=== PATIENT | female | born 1950 | race Caucasian/White ===

== ENCOUNTER → 2016-06-09 | Outpatient (CLI) | payer OTHER ==
[~2016-06-09] MED LIST: /DULO30CA PO; ADVAIR; ADVAIR INH; ALBUTEROL INH; ALDA25TA2 PO; ANTI25TA PO; ASPI81TA63 PO; ASTE0.15; Allergy Shots INJ; BILBERRY PO; BILLBERRY PO; Black Cohosh PO; CLAR5CHW; CLARINEX PO; COLA100C2 PO; ESTRACE OR; FURO40TA2 PO; GABA100C PO; IMIT50TA OR; LEVOXYL PO; LISI5TAB PO; MAGN500T2 PO; MAGOX; MOME50SP; MULTCAP9 PO; MULTIVIT PO; POTASSIUM GLUCONATE PO; PRAV1TAB39 PO; PREV15CA PO; PROAAER INH; SING10TA31 PO; SYMB80AE IN; ULTR300T PO; VICO5TAB OR; VITA500T PO; VITAMIN B 12 PO; VITAMIN B 6; VITAMIN B 6 PO; VITAMIN B-12; VITAMIN D 3; VITAMIN D 3 PO; ZADI0.026 OU; [UNRECOGNIZED DRUG - OTHER] OR; [UNRECOGNIZED DRUG - REMARK] INH; black cohash PO
--- NOTE | 2016-06-13 23:20 | ECWPNPC ---
PATIENT NAME: GLORIA CARROLL : 1950 GENDER: FEMALE VISIT DATE: 06/09/2016 DISCHARGE DATE: 06/09/16 1635 VISIT LOCKED DATE TIME: PHYSICIAN: RIMA ANDRADE RESOURCE: RIMA ANDRADE REASON FOR APPOINTMENT 1. W/C BACK HISTORY OF PRESENT ILLNESS HISTORY OF PRESENT ILLNESS: PAIN THE PATIENT DESCRIBES THE PAIN... 65 YEAR OLD FEMALE PATIENT WITH HISTORY OF CHRONIC BACK PAIN. PATIENT DESCRIBES THE PAIN ACHING, TENDER, AND SORE WITH A PAIN SCORE OF 4-5/10 ON TODAY'S VISIT. PATIENT WAS INJURED IN A WORK RELATED INJURY ON 03-14-1986 WORKING FOR [employer]. MS. CARROLL WAS HELPING A 89 YEAR OLD PATIENT FROM THE COMMODE WHEN THE PATIENT'S KNEES BUCKLED AND MS. CARROLL CAUGHT THE PATIENT INJURING HER BACK. MS. CARROLL REPORTS THAT SHE HAS NO HAD ANY BACK SURGERIES. PATIENT REPORTS THAT WITH TRAMADOL AND CYMBALTA THEY HELP TO KEEP HER PAIN TOLERABLE AND THAT WITHOUT THEM HER PAIN LEVELS WOULD BE HIGHER AND THAT SHE WOULD BE GETTING FAR LESS SLEEP, BUT PATIENT STATES THAT SOMETIMES ON SOME NIGHTS THE PAIN DOES STILL WAKE HER UP. PATIENT REPORTS THAT DAILY ACTIVITIES LIKE WASHING THE DISHES, VACUUMING AROUND THE HOUSE DOES INCREASE HER PAIN LEVELS AND THAT SHE HAS TO STOP EVERY SO OFTEN UNTIL THE PAIN RETURNS TO TOLERABLE LEVELS. PATIENT DENIES UNEXPLAINABLE WEIGHT LOSS, FEVER, CHILLS, NEW CHANGES ON HER URINARY OR BOWEL CONTROL. FALL RISK SCREENING: SCREENING :NO FALLS IN THE PAST YEAR CURRENT MEDICATIONS TAKING ZYRTEC ALLERGY 10 MG TABLET 1 TABLET NEEDED ORALLY ONCE A DAY TAKING DESLORATADINE 5 MG TABLET 1 TABLET ORALLY ONCE A DAY TAKING FUROSEMIDE 40 MG TABLET 1 TABLET ORALLY TWICE A DAY TAKING ESTRADIOL 1 MG TABLET 1 TABLET ORALLY DAILY TAKING LISINOPRIL 5 MG TABLET 1 TABLET ORALLY ONCE A DAY TAKING LANSOPRAZOLE 30 MG CAPSULE DELAYED RELEASE 1 CAPSULE ORALLY ONCE A DAY TAKING SPIRONOLACTONE 25 MG TABLET 1 TABLET ORALLY DAILY TAKING SINGULAIR 10 MG TABLET 1 TABLET IN THE EVENING ORALLY ONCE A DAY TAKING STOOL SOFTENER 100 MG CAPSULE 1 CAPSULE NEEDED ORALLY TWICE A DAY TAKING ECOTRIN LOW STRENGTH 81 MG TABLET DELAYED RELEASE 1 TABLET ORALLY ONCE A DAY TAKING PRAVASTATIN SODIUM 40 MG TABLET 1 TABLET ORALLY ONCE A DAY TAKING SYMBICORT 160-4.5 MCG/ACT AEROSOL 2 PUFFS INHALATION TWICE A DAY TAKING ASTEPRO 0.15 % SOLUTION 2 SPRAYS IN EACH NOSTRIL NASALLY PRN TAKING LEVOTHYROXINE SODIUM 25 MCG TABLET 1 TABLET ORALLY ONCE A DAY TAKING MELOXICAM 10 MG CAPSULE 1 CAPSULE ORALLY ONCE A DAY TAKING CYMBALTA 60 MG CAPSULE DELAYED RELEASE PARTICLES 1 CAPSULE ORALLY ONCE A DAY BILL W/C TAKING TRAMADOL HCL ER 300 MG TABLET EXTENDED RELEASE 24 HOUR 1 TABLET ORALLY ONCE A DAY MDD=1 NOT-TAKING LIPO-FLAVONOID PLUS TABLET 1 ORALLY BID NOT-TAKING POTASSIUM GLUCONATE 595 MG TABLET ORALLY NOT-TAKING MAGOX 400 400 (241.3 MG) MG TABLET ORALLY NOT-TAKING PROAIR HFA 108 (90 BASE) MCG/ACT AEROSOL SOLUTION 2 PUFFS INHALATION BID NOT-TAKING NASONEX 50 MCG/ACT SUSPENSION 2 SPRAYS IN EACH NOSTRIL NASALLY BID MEDICATION LIST REVIEWED AND RECONCILED WITH THE PATIENT PAST MEDICAL HISTORY HIGH CHOLESTORAL HYPOTHYROIDISM HYPERTENSION FLUID RETENTION BACK PAIN ALLERGIES LATEX (FOR ALLERGY USE ONLY): RASH: ALLERGY CECLOR: HIVES: ALLERGY AMOXICILLIN: HIVES: ALLERGY SULFA (FOR ALLERGY USE ONLY): HIVES: ALLERGY SURGICAL HISTORY TOTAL HYSTERECTOMY 2013 CHOLECYSTECTOMY 2011 RIGHT KNEE ARTHROSCOPY 1994 TORN LATERAL MENISCUS 2008 RIGHT BREAST LUMPECTOMY BENIGN 1992 FAMILY HISTORY NO FAMILY HISTORY DOCUMENTED. SOCIAL HISTORY GENERAL: TOBACCO USE ARE YOU A:NONSMOKER LEARNING BARRIERS / SPECIAL NEEDS ORIENTED TO PLAN OF CARE: PATIENT, PAIN MANAGEMENT PATIENT, ORIENTED TO PLAN OF CARE: PATIENT, PAIN MANAGEMENT PATIENT. NEW PATIENT PAIN DIARY TODAY'S VISITNOTES FROM 0-10, WHAT LEVEL IS YOUR PAIN TODAY?0 PAIN CLINIC PFS, CLERGY, PUBLIC HEALTH REFERRALS PFS REFERRAL NEEDED?NO CLERGY REFERRAL NEEDED?NO PUBLIC HEALTH REFERRAL NEEDED?NO WAS THE PROVIDER NOTIFIED OF ANY PERTINENT INFO?NO PFS REFERRAL NEEDED?NO CLERGY REFERRAL NEEDED?NO PUBLIC HEALTH REFERRAL NEEDED?NO WAS THE PROVIDER NOTIFIED OF ANY PERTINENT INFO?NO HOSPITALIZATION/MAJOR DIAGNOSTIC PROCEDURE GI BLEED UNKNOWN CAUSE 2013 REVIEW OF SYSTEMS CONSTITUTIONAL: ANY CHANGE IN YOUR MEDICAL CONDITION? NO . CHILLS NO . FEVER NO . INFECTION: DO YOU HAVE NEW INFECTIONS? NO . DO YOU HAVE HISTORY OF MRSA? NO . MUSCULOSKELETAL: ANY NEW PATTERNS OF PAIN OR NUMBNESS? NO . GASTROENTEROLOGY: ANY NEW CHANGE IN BOWEL CONTROL? NO . GENITOURINARY: ANY NEW CHANGE IN BLADDER CONTROL? NO . IS THERE A CHANCE YOU COULD BE ? NO . HEMATOLOGY/LYMPH: DO YOU TAKE ANY BLOOD THINNERS? (FOR EXAMPLE- COUMADIN, PLAVIX, AGGRENOX, PLATEL, PRADAXA, OR XARELTO) NO . WHEN WAS YOUR LAST DOSE? DATE: TIME: . NEUROLOGY: HAVE YOU FALLEN IN THE PAST 6 MONTHS? NO . ANY NEW EXTREMITY NUMBNESS OR WEAKNESS? NO . CARDIOLOGY: DO YOU HAVE A PACEMAKER OR DEFIBRILLATOR? NO . RESPIRATORY: HAVE YOU BEEN SICK IN THE PAST WEEK? YES PT HAD SINUS INFECTION WITH CONGESTION/DISCOMFORT, NOW RESOLVED . FEVER NO . FLU LIKE SYMPTOMS? NO . COUGH NO . INTEGUMENTARY: DO YOU HAVE ANY RASHES OR OPEN SORES? NO . ALLERGIC/IMMUNO: ARE YOU ALLERGIC TO SHELLFISH OR IV DYE? NO . ANY NEW ALLERGIES? NO . PSYCHIATRIC: DO YOU HAVE THOUGHTS OF HURTING YOURSELF OR SOMEONE ELSE? NO . ARE YOU ABUSED, NEGLECTED, OR IN AN UNSAFE ENVIRONMENT? NO . ENDOCRINOLOGY: ARE YOU DIABETIC? NO . OTHER: DO YOU NEED ANY PRESCRIPTIONS? YES CYMBALTA . IF YES, PLEASE LIST: ____ . ANY NEW PROBLEMS WITH YOUR MEDICATIONS? NO . WHEN DID YOU LAST EAT? ____ . WHEN DID YOU LAST DRINK? ____ . WHAT DID YOU LAST DRINK? ____ . NAME OF PERSON DRIVING YOU HOME? ____ . DO YOU HAVE ANY OTHER QUESTIONS OR CONCERNS NO . REVIEWED BY: PROVIDER: RIMA ANDRADE MD . VITAL SIGNS WT 284.6 LBS, HT 63 IN, BMI 50.41 INDEX, BP 128/75 MM HG, HR 91 /MIN, RR 16 /MIN, TEMP 97.4 F, OXYGEN SAT % 91%, NA INITIALS SC 15:05, REVIEWED BY: JON. EXAMINATION : PATIENT IS ALERT O X 3 AND COOPERATIVE. THERE IS TENDERNESS IN THE LUMBAR PARASPINAL MUSCLE GROUP, THE PATIENT FLINCHED WHEN I EXAMINED THIS AREA. PATIENT IS ABLE TO FLEX HER BACK AT 45 DEGREES AND EXTEND AT 5 DEGREES. THE PATIENT'S LEFT LEG IS WEAKER AT FLEXION AND EXTENSION COMPARED TO THE RIGHT LEG. MRI OF THE LUMBAR SPINE DONE ON 10/23/2008 SHOWS MULTIPLE DISC BULGES AT MULTIPLE LEVELS. ASSESSMENTS CHRONIC LOW BACK PAIN WITHOUT SCIATICA, UNSPECIFIED BACK PAIN LATERALITY - M54.5 (PRIMARY) SPONDYLOSIS WITHOUT MYELOPATHY OR RADICULOPATHY, LUMBAR REGION - M47.816 SPONDYLOSIS WITHOUT MYELOPATHY OR RADICULOPATHY, LUMBOSACRAL REGION - M47.817 TREATMENT CHRONIC LOW BACK PAIN WITHOUT SCIATICA, UNSPECIFIED BACK PAIN LATERALITY REFILL CYMBALTA CAPSULE DELAYED RELEASE PARTICLES, 60 MG, 1 CAPSULE, ORALLY, ONCE A DAY BILL W/C, 30 DAY(S), 30, REFILLS 2 REFILL TRAMADOL HCL ER TABLET EXTENDED RELEASE 24 HOUR, 300 MG, 1 TABLET, ORALLY, ONCE A DAY MDD=1, 30 DAY(S), 30, REFILLS 0 NOTES: WE DISCUSSED SEVERAL ISSUES WITH MS. VELASQUEZ PAIN MANAGEMENT CASE. AT THIS TIME THE PATIENT WILL CONTINUE ON THE SAME MEDICATION REGIMEN BEFORE AND WILL RECEIVE A REFILL OF TRAMADOL AND CYMBALTA. PATIENT BROUGHT HER MEDICATION BOTTLES TO THE VISIT TODAY ADVISED TO DO ON EVERY FOLLOW UP VISIT. I WILL ORDER UTOX TO BE COLLECTION AND COMPLETED TODAY. PATIENT IS A GOOD CANDIDATE FOR A LUMBAR FACET BLOCK, PATIENT EXPRESSED THAT SHE HAS SOME CONCERNS AND WOULD LIKE TO THINK IT OVER. INSTRUCTIONS WERE GIVEN, QUESTIONS WERE ANSWERED, PATIENT REPORTS UNDERSTANDING AND AGREES WITH THE PLAN. I, LLOYD VERAS, DOCUMENTED THE ABOVE INFORMATION ACTING A SCRIBE FOR DR. ANDRADE. I HAVE REVIEWED THE ABOVE DOCUMENT, WRITTEN BY LLOYD VERAS SCRIBBairon AND I VERIFY THAT IT IS ACCURATE. PROCEDURES PN WORKMANS' COMP OPINION IN YOUR OPINION, WAS THE INCIDENT THAT THE PATIENT DESCRIBED THE COMPETENT MEDICAL CAUSE OF THIS INJURY/ILLNESS? YES ARE THE PATIENT'S COMPLAINTS CONSISTENT WITH HIS/HER HISTORY OF THE INJURY/ILLNESS? YES IS THE PATIENT'S HISTORY OF THE INJURY/ILLNESS CONSISTENT WITH YOUR OBJECTIVE FINDING? YES WHAT IS THE PERCENTAGE OF TEMPORARY IMPAIRMENT? MODERATE TO MARKED = 66.7% IS THE PATIENT WORKING? NO DOCTOR ON SITE: RIMA GUERRERO MD PROCEDURE CODES FA211 ESTABILISHED PATIENT [facility] FACILITY CHARGE G8730 PAIN ASSESS POS TOOL F/U PLAN DOC G8427 DOC MEDS VERIFIED W/PT OR RE DISPOSITION & COMMUNICATION FOLLOW UP 4 WEEKS ELECTRONICALLY SIGNED BY RIMA ANDRADE MD ON 06/13/2016 AT 04:00 PM EST DISCLAIMER : THIS IS A VISIT SUMMARY EXTRACTED FROM THE COM DEV CHART. IT IS NOT A COPY OF THE COM DEV PROGRESS NOTE. DEEJAY
== END ==
LOC: M PAIN 15:20
PROVIDERS: ATTEND Anesthesiology
DX: Z09 Encounter for follow-up examination after completed treatment for conditions other than malignant neoplasm (principal); G89.29 Other chronic pain; M54.5 Low back pain; M47.816 Spondylosis without myelopathy or radiculopathy, lumbar region; M47.817 Spondylosis without myelopathy or radiculopathy, lumbosacral region; E78.00 Pure hypercholesterolemia, unspecified; E03.9 Hypothyroidism, unspecified; I10 Essential (primary) hypertension; Z91.040 Latex allergy status; Z88.8 Allergy status to other drugs, medicaments and biological substances; Z88.2 Allergy status to sulfonamides; Z88.1 Allergy status to other antibiotic agents; Z79.891 Long term (current) use of opiate analgesic; Z79.899 Other long term (current) drug therapy

== ENCOUNTER → 2016-07-14 | Outpatient (CLI) | payer OTHER ==
--- NOTE | 2016-07-26 23:51 | ECWPNPC ---
PATIENT NAME: GLORIA CARROLL : 1950 GENDER: FEMALE VISIT DATE: 07/14/2016 DISCHARGE DATE: 07/14/16 1433 VISIT LOCKED DATE TIME: PHYSICIAN: RIMA ANDRADE RESOURCE: RIMA ADNRADE REASON FOR APPOINTMENT 1. BACK PAIN W/C HISTORY OF PRESENT ILLNESS HISTORY OF PRESENT ILLNESS: PAIN THE PATIENT DESCRIBES THE PAIN... 65 YEAR OLD FEMALE PATIENT WITH HISTORY OF CHRONIC LOW BACK PAIN. PATIENT DESCRIBES THE PAIN ACHING AND TENDER WITH A PAIN SCORE OF 4-5/10. PATIENT WAS HURT IN A WORK RELATED INJURY ON 03/14/86 WHEN WORKING FOR [employer] WHILE HELPING A 89 YEAR OLD OFF THE COMMODE AND HER KNEES COLLAPSE AND MRS. CARROLL GRABBED THE PATIENT AND WAS PULLED DOWN WITH HER. MRS. CARROLL DENIES ANY BACK SURGERY. PATIENT IS USING CYMBALTA AND TRAMADOL AND STATES THAT THE MEDICATION KEEPS HER FUNCTIONAL AND MOBILE. PATIENT STATES THAT ANY TYPE OF ACTIVITY INCREASES THE PAIN IN THE LOWER BACK AND AT THIS TIME THE PATIENT STATES THAT MEDICATION AIDS IN PAIN RELIEF. MRS. CARROLL STATES THAT PHYSICAL THERAPY DID NOT AID IN PAIN RELIEF. PATIENT DENIES UNEXPLAINABLE WEIGHT LOSS, FEVER, CHILLS, NEW CHANGES ON HER URINARY OR BOWEL CONTROL. FALL RISK SCREENING: SCREENING :NO FALLS IN THE PAST YEAR CURRENT MEDICATIONS TAKING CYMBALTA 60 MG CAPSULE DELAYED RELEASE PARTICLES 1 CAPSULE ORALLY ONCE A DAY BILL W/C TAKING TRAMADOL HCL ER 300 MG TABLET EXTENDED RELEASE 24 HOUR 1 TABLET ORALLY ONCE A DAY MDD=1 TAKING DESLORATADINE 5 MG TABLET 1 TABLET ORALLY ONCE A DAY TAKING FUROSEMIDE 40 MG TABLET 1 TABLET ORALLY TWICE A DAY TAKING ESTRADIOL 1 MG TABLET 1 TABLET ORALLY DAILY TAKING LISINOPRIL 5 MG TABLET 1 TABLET ORALLY ONCE A DAY TAKING LANSOPRAZOLE 30 MG CAPSULE DELAYED RELEASE 1 CAPSULE ORALLY ONCE A DAY TAKING SPIRONOLACTONE 25 MG TABLET 1 TABLET ORALLY DAILY TAKING SINGULAIR 10 MG TABLET 1 TABLET IN THE EVENING ORALLY ONCE A DAY TAKING STOOL SOFTENER 100 MG CAPSULE 1 CAPSULE NEEDED ORALLY TWICE A DAY TAKING ECOTRIN LOW STRENGTH 81 MG TABLET DELAYED RELEASE 1 TABLET ORALLY ONCE A DAY TAKING SYMBICORT 160-4.5 MCG/ACT AEROSOL 2 PUFFS INHALATION TWICE A DAY TAKING ASTEPRO 0.15 % SOLUTION 2 SPRAYS IN EACH NOSTRIL NASALLY PRN TAKING LEVOTHYROXINE SODIUM 25 MCG TABLET 1 TABLET ORALLY ONCE A DAY TAKING MELOXICAM 10 MG CAPSULE 1 CAPSULE ORALLY ONCE A DAY NOT-TAKING ZYRTEC ALLERGY 10 MG TABLET 1 TABLET NEEDED ORALLY ONCE A DAY NOT-TAKING PRAVASTATIN SODIUM 40 MG TABLET 1 TABLET ORALLY ONCE A DAY NOT-TAKING LIPO-FLAVONOID PLUS TABLET 1 ORALLY BID NOT-TAKING POTASSIUM GLUCONATE 595 MG TABLET ORALLY NOT-TAKING MAGOX 400 400 (241.3 MG) MG TABLET ORALLY NOT-TAKING PROAIR HFA 108 (90 BASE) MCG/ACT AEROSOL SOLUTION 2 PUFFS INHALATION BID NOT-TAKING NASONEX 50 MCG/ACT SUSPENSION 2 SPRAYS IN EACH NOSTRIL NASALLY BID MEDICATION LIST REVIEWED AND RECONCILED WITH THE PATIENT PAST MEDICAL HISTORY HIGH CHOLESTORAL HYPOTHYROIDISM HYPERTENSION FLUID RETENTION BACK PAIN ALLERGIES LATEX (FOR ALLERGY USE ONLY): RASH: ALLERGY CECLOR: HIVES: ALLERGY AMOXICILLIN: HIVES: ALLERGY SULFA (FOR ALLERGY USE ONLY): HIVES: ALLERGY SURGICAL HISTORY TOTAL HYSTERECTOMY 2012 CHOLECYSTECTOMY 2010 RIGHT KNEE ARTHROSCOPY 1993 TORN LATERAL MENISCUS 2007 RIGHT BREAST LUMPECTOMY BENIGN 1991 FAMILY HISTORY FATHER: 83 YRS, DIAGNOSED WITH HEART DISEASE MOTHER: 70 YRS 1 SISTER(S) . 1 SON(S) , 1 DAUGHTER(S) - HEALTHY. MOM- TO GI BLEED AND SEPSIS, SISTER OF ENCEPHALOPATHY. SOCIAL HISTORY GENERAL: PAIN CLINIC PFS, CLERGY, PUBLIC HEALTH REFERRALS PFS REFERRAL NEEDED?NO CLERGY REFERRAL NEEDED?NO PUBLIC HEALTH REFERRAL NEEDED?NO WAS THE PROVIDER NOTIFIED OF ANY PERTINENT INFO?YES PATIENT: ____. HOSPITALIZATION/MAJOR DIAGNOSTIC PROCEDURE GI BLEED UNKNOWN CAUSE 2013 REVIEW OF SYSTEMS CONSTITUTIONAL: ANY CHANGE IN YOUR MEDICAL CONDITION? NO . CHILLS NO . FEVER NO . INFECTION: DO YOU HAVE NEW INFECTIONS? NO . DO YOU HAVE HISTORY OF MRSA? NO . MUSCULOSKELETAL: ANY NEW PATTERNS OF PAIN OR NUMBNESS? NO . GASTROENTEROLOGY: ANY NEW CHANGE IN BOWEL CONTROL? NO . GENITOURINARY: ANY NEW CHANGE IN BLADDER CONTROL? NO . IS THERE A CHANCE YOU COULD BE ? NO . HEMATOLOGY/LYMPH: DO YOU TAKE ANY BLOOD THINNERS? (FOR EXAMPLE- COUMADIN, PLAVIX, AGGRENOX, PLATEL, PRADAXA, OR XARELTO) NO . WHEN WAS YOUR LAST DOSE? DATE: TIME: . NEUROLOGY: HAVE YOU FALLEN IN THE PAST 6 MONTHS? NO . ANY NEW EXTREMITY NUMBNESS OR WEAKNESS? NO . CARDIOLOGY: DO YOU HAVE A PACEMAKER OR DEFIBRILLATOR? NO . RESPIRATORY: HAVE YOU BEEN SICK IN THE PAST WEEK? NO . FEVER NO . FLU LIKE SYMPTOMS? NO . COUGH NO . INTEGUMENTARY: DO YOU HAVE ANY RASHES OR OPEN SORES? NO . ALLERGIC/IMMUNO: ARE YOU ALLERGIC TO SHELLFISH OR IV DYE? NO . ANY NEW ALLERGIES? NO . PSYCHIATRIC: DO YOU HAVE THOUGHTS OF HURTING YOURSELF OR SOMEONE ELSE? NO . ARE YOU ABUSED, NEGLECTED, OR IN AN UNSAFE ENVIRONMENT? NO . ENDOCRINOLOGY: ARE YOU DIABETIC? NO . OTHER: DO YOU NEED ANY PRESCRIPTIONS? YES, TRAMADOL 300MG . IF YES, PLEASE LIST: ____ . ANY NEW PROBLEMS WITH YOUR MEDICATIONS? NO . WHEN DID YOU LAST EAT? 07/13 7:30PM . WHEN DID YOU LAST DRINK? 07/13 7:30PM . WHAT DID YOU LAST DRINK? WATER . NAME OF PERSON DRIVING YOU HOME? SELF . DO YOU HAVE ANY OTHER QUESTIONS OR CONCERNS NO . REVIEWED BY: PROVIDER: RIMA ANDRADE MD . VITAL SIGNS WT 283.0 LBS, HT 63 IN, BMI 50.13 INDEX, BP 134/87 MM HG, HR 100 /MIN, RR 18 /MIN, TEMP 98.5 F, OXYGEN SAT % 93%, SAFE IN ENV? (Y/N) Y, NA INITIALS TL 1309, REVIEWED BY: JACOB. EXAMINATION : PATIENT IS ALERT O X 3 AND COOPERATIVE. THERE IS TENDERNESS IN THE LUMBAR PARASPINAL MUSCLE GROUP ON THE LEFT AND RIGHT SIDE BUT MAINLY THE LEFT. PATIENT IS ABLE TO FLEX HER BACK AT 45 DEGREES AND EXTEND AT 5 DEGREES. THE PATIENT'S LEFT LEG IS WEAKER AT FLEXION AND EXTENSION COMPARED TO THE RIGHT LEG. MRI OF THE LUMBAR SPINE DONE ON 10/23/2008 SHOWS MULTIPLE DISC BULGES AT MULTIPLE LEVELS. ASSESSMENTS SPONDYLOSIS WITHOUT MYELOPATHY OR RADICULOPATHY, LUMBAR REGION - M47.816 (PRIMARY) SPONDYLOSIS WITHOUT MYELOPATHY OR RADICULOPATHY, LUMBOSACRAL REGION - M47.817 INTERVERTEBRAL DISC DISORDERS WITH RADICULOPATHY, LUMBAR REGION - M51.16 INTERVERTEBRAL DISC DISORDERS WITH RADICULOPATHY, LUMBOSACRAL REGION - M51.17 TREATMENT SPONDYLOSIS WITHOUT MYELOPATHY OR RADICULOPATHY, LUMBAR REGION REFILL CYMBALTA CAPSULE DELAYED RELEASE PARTICLES, 60 MG, 1 CAPSULE, ORALLY, ONCE A DAY BILL W/C, 30 DAY(S), 30, REFILLS 2 REFILL TRAMADOL HCL ER TABLET EXTENDED RELEASE 24 HOUR, 300 MG, 1 TABLET, ORALLY ( CODE D FOR CHRONIC PAIN ), ONCE A DAY MDD=1, 60 DAYS, 60, REFILLS 0 NOTES: WE DISCUSSED SEVERAL ISSUES WITH MRS. CARROLL'S PAIN MANAGEMENT CASE. PATIENT WILL CONTINUE WITH THE SAME MEDICATION REGIME BEFORE. PATIENT DENIES ABUSE OF ANY MEDICATION, DENIES USE OF ILLEGAL SUBSTANCES, AND STATES THAT SHE IS ONLY USING THE MEDICATION FOR PAIN MANAGEMENT. PATIENT BROUGHT MEDICATIONS IN THERE ORIGINAL BOTTLES TO TODAY'S VISIT. URINE TOXICOLOGY REPORT DONE ON 05/30/16 SHOWS CONSISTENT RESULTS WITH THE PATIENT'S MEDICATION LIST. WE DISCUSSED MOVING FORWARD WITH THE LUMBAR FACET BLOCK THAT WE DISCUSSED AT THE PREVIOUS VISIT. WE DISCUSSED THE RISKS, BENEFITS, AND ALTNERATIVES OF THE INJECTION AND THE PATIENT WOULD LIKE TO PROCEED AT THIS TIME. INSTRUCTIONS WERE GIVEN, QUESTIONS WERE ANSWERED, PATIENT REPORTS UNDERSTANDING AND AGREES WITH THE PLAN. I, MARIAELENA ORTEGA, DOCUMENTED THE ABOVE INFORMATION ACTING A SCRIBE FOR DR. ANDRADE. I HAVE REVIEWED THE ABOVE DOCUMENT, WRITTEN BY MARIAELENA BOUDREAUX AND I VERIFY THAT IT IS ACCURATE. ,FACET JOINT INJECTION: YOUR EXPERIENCE MATERIAL WAS PRINTED. PROCEDURES PN WORKMANS' COMP OPINION IN YOUR OPINION, WAS THE INCIDENT THAT THE PATIENT DESCRIBED THE COMPETENT MEDICAL CAUSE OF THIS INJURY/ILLNESS? YES ARE THE PATIENT'S COMPLAINTS CONSISTENT WITH HIS/HER HISTORY OF THE INJURY/ILLNESS? YES IS THE PATIENT'S HISTORY OF THE INJURY/ILLNESS CONSISTENT WITH YOUR OBJECTIVE FINDING? YES WHAT IS THE PERCENTAGE OF TEMPORARY IMPAIRMENT? MODERATE TO MARKED = 66.7% IS THE PATIENT WORKING? NO DOCTOR ON SITE: RIMA GUERRERO MD PROCEDURE CODES FA211 ESTABILISHED PATIENT [facility] FACILITY CHARGE G8427 DOC MEDS VERIFIED W/PT OR RE G8730 PAIN ASSESS POS TOOL F/U PLAN DOC DISPOSITION & COMMUNICATION FOLLOW UP LFBT AFTER APPROVAL ELECTRONICALLY SIGNED BY RIMA ANDRADE MD ON 07/26/2016 AT 05:21 PM EDT DISCLAIMER : THIS IS A VISIT SUMMARY EXTRACTED FROM THE [employer] CHART. IT IS NOT A COPY OF THE [employer] PROGRESS NOTE. DEEJAY
== END ==
LOC: M PAIN 13:00
PROVIDERS: ATTEND Anesthesiology
DX: Z09 Encounter for follow-up examination after completed treatment for conditions other than malignant neoplasm (principal); G89.29 Other chronic pain; M47.816 Spondylosis without myelopathy or radiculopathy, lumbar region; M47.817 Spondylosis without myelopathy or radiculopathy, lumbosacral region; M51.16 Intervertebral disc disorders with radiculopathy, lumbar region; M51.17 Intervertebral disc disorders with radiculopathy, lumbosacral region; E78.00 Pure hypercholesterolemia, unspecified; E03.9 Hypothyroidism, unspecified; I10 Essential (primary) hypertension; Z91.040 Latex allergy status; Z88.1 Allergy status to other antibiotic agents; Z88.2 Allergy status to sulfonamides; Z88.8 Allergy status to other drugs, medicaments and biological substances; Z79.891 Long term (current) use of opiate analgesic; Z79.899 Other long term (current) drug therapy

== ENCOUNTER → 2016-08-11 | Outpatient (CLI) | payer OTHER ==
[~2016-08-11] MED LIST changes: +BUPIVACAINE HCL 0.25% 30 ML VIAL As Ordered ONE; +ISOVUE-M 300 61% 15ML VIAL (Q9967) As Ordered ONE; +LIDOCAINE 1% SDV INJ 30 ML VIAL As Ordered ONE; +TRIAMCINOLONE ACETONIDE SUSP 40 MG/ML VIAL (J3301) As Ordered ONE; +diazePAM 5 MG TAB As Ordered ONE
--- NOTE | 2016-08-11 18:09 | REP ---
FACET BLOCK: The images were reviewed with Dr. Limon. The patient has a history of low back pain and left sciatica. The portable C-ARM was provided in the OR for Dr. Davis for fluoroscopic guidance. 1 intraoperative fluoroscopic spot film were obtained for needle placement verification for left lumbar facet injection. The film is on the PACs system and is available for review. 27 seconds of fluoroscopic time was utilized for this procedure. Reviewed by XANDER Padilla 08/12/2016 09:42 AEdited and Signed by Garret Limon MD 08/12/2016 04:42 P
--- NOTE | 2016-08-18 02:33 | ECWPNPC ---
PATIENT NAME: GLORIA CARROLL : 1950 GENDER: FEMALE VISIT DATE: 08/11/2016 DISCHARGE DATE: 08/11/16 1221 VISIT LOCKED DATE TIME: PHYSICIAN: RIMA ANDRADE RESOURCE: RIMA ANDRADE REASON FOR APPOINTMENT 1. LFBT HISTORY OF PRESENT ILLNESS HISTORY OF PRESENT ILLNESS: PAIN THE PATIENT DESCRIBES THE PAIN... FALL RISK SCREENING: SCREENING :NO FALLS IN THE PAST YEAR CURRENT MEDICATIONS TAKING DESLORATADINE 5 MG TABLET 1 TABLET ORALLY ONCE A DAY, NOTES: 08-11-16799 TAKING FUROSEMIDE 40 MG TABLET 1 TABLET ORALLY TWICE A DAY, NOTES: 08-11-16799 TAKING ESTRADIOL 1 MG TABLET 1 TABLET ORALLY DAILY, NOTES: 08-11-16799 TAKING LISINOPRIL 5 MG TABLET 1 TABLET ORALLY ONCE A DAY, NOTES: 08-11-16799 TAKING LANSOPRAZOLE 30 MG CAPSULE DELAYED RELEASE 1 CAPSULE ORALLY ONCE A DAY, NOTES: 08-11-16799 TAKING SPIRONOLACTONE 25 MG TABLET 1 TABLET ORALLY DAILY, NOTES: 08-11-16799 TAKING SINGULAIR 10 MG TABLET 1 TABLET IN THE EVENING ORALLY ONCE A DAY, NOTES: 08-10-162099 TAKING STOOL SOFTENER 100 MG CAPSULE 1 CAPSULE NEEDED ORALLY TWICE A DAY, NOTES: 08-10-162099 TAKING ECOTRIN LOW STRENGTH 81 MG TABLET DELAYED RELEASE 1 TABLET ORALLY ONCE A DAY, NOTES: 08-11-16799 TAKING SYMBICORT 160-4.5 MCG/ACT AEROSOL 2 PUFFS INHALATION TWICE A DAY, NOTES: 08-11-16799 TAKING ASTEPRO 0.15 % SOLUTION 2 SPRAYS IN EACH NOSTRIL NASALLY PRN, NOTES: 08-11-16799 TAKING LEVOTHYROXINE SODIUM 25 MCG TABLET 1 TABLET ORALLY ONCE A DAY, NOTES: 08-11-16799 TAKING MELOXICAM 10 MG CAPSULE 1 CAPSULE ORALLY ONCE A DAY, NOTES: 08-11-16799 TAKING CYMBALTA 60 MG CAPSULE DELAYED RELEASE PARTICLES 1 CAPSULE ORALLY ONCE A DAY BILL W/C, NOTES: 08-10-162099 TAKING TRAMADOL HCL ER 300 MG TABLET EXTENDED RELEASE 24 HOUR 1 TABLET ORALLY ( CODE D FOR CHRONIC PAIN ) ONCE A DAY MDD=1, NOTES: 08-10-162099 NOT-TAKING PROAIR HFA 108 (90 BASE) MCG/ACT AEROSOL SOLUTION 2 PUFFS INHALATION BID NOT-TAKING NASONEX 50 MCG/ACT SUSPENSION 2 SPRAYS IN EACH NOSTRIL NASALLY BID DISCONTINUED ZYRTEC ALLERGY 10 MG TABLET 1 TABLET NEEDED ORALLY ONCE A DAY DISCONTINUED PRAVASTATIN SODIUM 40 MG TABLET 1 TABLET ORALLY ONCE A DAY DISCONTINUED LIPO-FLAVONOID PLUS TABLET 1 ORALLY BID DISCONTINUED POTASSIUM GLUCONATE 595 MG TABLET ORALLY DISCONTINUED MAGOX 400 400 (241.3 MG) MG TABLET ORALLY MEDICATION LIST REVIEWED AND RECONCILED WITH THE PATIENT PAST MEDICAL HISTORY HIGH CHOLESTORAL HYPOTHYROIDISM HYPERTENSION FLUID RETENTION BACK PAIN ALLERGIES LATEX (FOR ALLERGY USE ONLY): RASH: ALLERGY CECLOR: HIVES: ALLERGY AMOXICILLIN: HIVES: ALLERGY SULFA (FOR ALLERGY USE ONLY): HIVES: ALLERGY REVIEW OF SYSTEMS CONSTITUTIONAL: ANY CHANGE IN YOUR MEDICAL CONDITION? NO . CHILLS NO . FEVER NO . INFECTION: DO YOU HAVE NEW INFECTIONS? NO . DO YOU HAVE HISTORY OF MRSA? NO . MUSCULOSKELETAL: ANY NEW PATTERNS OF PAIN OR NUMBNESS? NO . GASTROENTEROLOGY: ANY NEW CHANGE IN BOWEL CONTROL? NO . GENITOURINARY: ANY NEW CHANGE IN BLADDER CONTROL? NO . IS THERE A CHANCE YOU COULD BE ? NO . HEMATOLOGY/LYMPH: DO YOU TAKE ANY BLOOD THINNERS? (FOR EXAMPLE- COUMADIN, PLAVIX, AGGRENOX, PLATEL, PRADAXA, OR XARELTO) NO . WHEN WAS YOUR LAST DOSE? DATE: TIME: . NEUROLOGY: HAVE YOU FALLEN IN THE PAST 6 MONTHS? NO . ANY NEW EXTREMITY NUMBNESS OR WEAKNESS? NO . CARDIOLOGY: DO YOU HAVE A PACEMAKER OR DEFIBRILLATOR? NO . RESPIRATORY: HAVE YOU BEEN SICK IN THE PAST WEEK? NO . FEVER NO . FLU LIKE SYMPTOMS? NO . COUGH NO . INTEGUMENTARY: DO YOU HAVE ANY RASHES OR OPEN SORES? NO . ALLERGIC/IMMUNO: ARE YOU ALLERGIC TO SHELLFISH OR IV DYE? NO . ANY NEW ALLERGIES? NO . PSYCHIATRIC: DO YOU HAVE THOUGHTS OF HURTING YOURSELF OR SOMEONE ELSE? NO . ARE YOU ABUSED, NEGLECTED, OR IN AN UNSAFE ENVIRONMENT? NO . ENDOCRINOLOGY: ARE YOU DIABETIC? NO . OTHER: DO YOU NEED ANY PRESCRIPTIONS? NO . IF YES, PLEASE LIST: ____ . ANY NEW PROBLEMS WITH YOUR MEDICATIONS? NO . WHEN DID YOU LAST EAT? 5--17 PM . WHAT DID YOU LAST DRINK? WATER AT 0800 . NAME OF PERSON DRIVING YOU HOME? DIXON- . DO YOU HAVE ANY OTHER QUESTIONS OR CONCERNS NO . REVIEWED BY: PROVIDER: . VITAL SIGNS WT 283.0 LBS, HT 63 IN, BMI 50.13 INDEX, BP 171/79 MM HG, HR 94 /MIN, RR 18 /MIN, TEMP 98.0 F, OXYGEN SAT % 98%, NA INITIALS TL 1020, REVIEWED BY: CM. ASSESSMENTS SPONDYLOSIS WITHOUT MYELOPATHY OR RADICULOPATHY, LUMBAR REGION - M47.816 (PRIMARY) SPONDYLOSIS WITHOUT MYELOPATHY OR RADICULOPATHY, LUMBOSACRAL REGION - M47.817 PROCEDURES PN LUMBAR FACET BLOCK THERAPEUTIC PRE PROCEDURE DIAGNOSIS LUMBAR SPONDYLOSIS, LUMBOSACRAL SPONDYLOSIS POST PROCEDURE DIAGNOSIS LUMBAR SPONDYLOSIS, LUMBOSACRAL SPONDYLOSIS PROCEDURE LEFT L3-L4, L4-L5, AND L5-S1 LUMBAR FACET THERAPEUTIC BLOCK SURGEON DR. RIMA ANDRADE QUILLER OPERATOR NONE ANESTHESIA LOCAL PRE PROCEDURE NOTE THE PATIENT HAS A HISTORY OF CHRONIC LOW BACK PAIN. I EVALUATE THE PATIENT AND REVIEWED THE CHART. I WENT OVER THE RISKS, ALTERNATIVES, AND BENEFITS ASSOCIATED WITH THIS PROCEDURE. THE PATIENT WOULD LIKE TO PROCEED AND GIVE CONSENT TO PERFORMED THE PROCEDURE. THE PATIENT DENIES UNEXPLAINABLE WEIGHT LOSS, FEVER, CHILLS, OR NEW CHANGES IN URINARY OR BOWEL CONTROL DESCRIPTION OF PROCEDURE THE PATIENT WAS BROUGHT TO THE PROCEDURE ROOM AND PLACED IN THE PRONE POSITION. THE LUMBOSACRAL AREA WAS CLEANED WITH CHLORAPREP SOLUTION AND DRAPED ASEPTICALLY. THE PROCEDURE WAS DONE UNDER STERILE CONDITIONS. I CHECKED LATERALITY AND THE LEVEL WHERE THE PROCEDURE WAS GOING TO BE PERFORMED WITH THE PATIENT AND THE SUPPORTING STAFF AT THE MOMENT OF THE TIME OUT IN THE PROCEDURE ROOM. UNDER FLUOROSCOPIC GUIDANCE, THE TARGET POINT WAS SELECTED AT THE LEFT L3-L4, L4-L5, AND L5-S1 FACET JOINT. TARGET POINT WAS SELECTED AFTER LATERAL ROTATION AND TILT OF THE MAGNIFIER OF THE C-ARM. LIDOCAINE 0.5% WAS USED TO NUMB THE SKIN AND THE SUBCUTANEOUS TISSUE BELOW IT. SPINAL NEEDLES, 22-GAUGE, WERE ADVANCED UNDER FLUOROSCOPIC GUIDANCE AND FOLLOWING PATIENT FEEDBACK UNTIL THE TARGETS WERE TOUCHED. THE POSITION OF THE NEEDLES WAS VERIFIED WITH AP AND LATERAL VIEWS. AFTER PROPER POSITION OF THE NEEDLES WAS ACHIEVED, ISOVUE-M DYE 30% 0.1 ML WAS INJECTED SHOWING ADEQUATE SPREAD OF THE DYE. THEN A SOLUTION OF 1.9 ML OF BUPIVACAINE 0.125% OF KENALOG 10 MG WAS INJECTED AT EACH SITE. THERE WAS NO EVIDENCE OF BLOOD, PARESTHESIA OR CEREBROSPINAL FLUID DURING THE PROCEDURE. THE PATIENT WAS SENT TO THE RECOVERY ROOM. THE PATIENT WAS MOVING THE EXTREMITIES AND DOING WELL. THERE WAS NO COMPLICATION DURING THE PROCEDURE. FLUOROSCOPY TIME WAS 27 SECONDS POST PROCEDURE NOTE THE PATIENT WILL BE SEEN IN A FOLLOW UP IN THE NEXT FEW WEEKS. INSTRUCTIONS WERE GIVEN, QUESTIONS WERE ANSWERED, AND THE PATIENT EXPRESSED UNDERSTANDING AND AGREES WITH THE PLAN. I, LLOYD VERAS, DOCUMENTED THE ABOVE INFORMATION ACTING A SCRIBE FOR DR. ANDRADE. I HAVE REVIEWED THE ABOVE DOCUMENT, WRITTEN BY LLOYD VERAS SCRIBE AND I VERIFY THAT IT IS ACCURATE. PN WORKMANS' COMP OPINION IN YOUR OPINION, WAS THE INCIDENT THAT THE PATIENT DESCRIBED THE COMPETENT MEDICAL CAUSE OF THIS INJURY/ILLNESS? YES ARE THE PATIENT'S COMPLAINTS CONSISTENT WITH HIS/HER HISTORY OF THE INJURY/ILLNESS? YES IS THE PATIENT'S HISTORY OF THE INJURY/ILLNESS CONSISTENT WITH YOUR OBJECTIVE FINDING? YES WHAT IS THE PERCENTAGE OF TEMPORARY IMPAIRMENT? MODERATE TO MARKED = 66.7% IS THE PATIENT WORKING? NO DOCTOR ON SITE: RIMA GUERRERO MD DIAGNOSTIC IMAGING [facility] FACET BLOCK (PAIN)[id number] PROCEDURE CODES 71697 INJ PARAVERT F JNT L/S 1 LEV 82994 INJ PARAVERT F JNT L/S 2 LEV 08234 INJ PARAVERT F JNT L/S 3 LEV 6045F RADXPS IN END [id number] PXD DISPOSITION & COMMUNICATION FOLLOW UP 3 WEEKS ELECTRONICALLY SIGNED BY RIMA ANDRADE MD ON 08/17/2016 AT 08:28 PM EDT DISCLAIMER : THIS IS A VISIT SUMMARY EXTRACTED FROM THE [employer] CHART. IT IS NOT A COPY OF THE [employer] PROGRESS NOTE. MTDD
== END ==
LOC: M PAIN 10:20
PROVIDERS: ATTEND Anesthesiology
DX: G89.29 Other chronic pain (principal); M47.816 Spondylosis without myelopathy or radiculopathy, lumbar region; M47.817 Spondylosis without myelopathy or radiculopathy, lumbosacral region; E78.00 Pure hypercholesterolemia, unspecified; E03.9 Hypothyroidism, unspecified; I10 Essential (primary) hypertension; Z91.040 Latex allergy status; Z88.8 Allergy status to other drugs, medicaments and biological substances; Z88.1 Allergy status to other antibiotic agents; Z88.2 Allergy status to sulfonamides; Z79.891 Long term (current) use of opiate analgesic; Z79.899 Other long term (current) drug therapy
CPT/HCPCS: 64493; 64494; 64495; J3301; Q9967

== ENCOUNTER → 2016-10-22 | Outpatient (CLI) | payer OTHER ==
[~2016-10-22] MED LIST changes: -BUPIVACAINE HCL 0.25% 30 ML VIAL As Ordered ONE; -ISOVUE-M 300 61% 15ML VIAL (Q9967) As Ordered ONE; -LIDOCAINE 1% SDV INJ 30 ML VIAL As Ordered ONE; -TRIAMCINOLONE ACETONIDE SUSP 40 MG/ML VIAL (J3301) As Ordered ONE; -diazePAM 5 MG TAB As Ordered ONE
--- NOTE | 2016-11-04 00:39 | ECWPNPC ---
PATIENT NAME: GLORIA CARROLL : 1950 GENDER: FEMALE VISIT DATE: 10/22/2016 DISCHARGE DATE: 10/22/16 1452 VISIT LOCKED DATE TIME: PHYSICIAN: RIMA ANDRADE RESOURCE: RIMA ANDRADE REASON FOR APPOINTMENT 1. W/C HISTORY OF PRESENT ILLNESS HISTORY OF PRESENT ILLNESS: PAIN THE PATIENT DESCRIBES THE PAIN... 65 YEAR OLD FEMALE PATIENT WITH HISTORY OF CHRONIC LOW BACK PAIN. PATIENT DESCRIBES THE PAIN ACHING AND TENDER WITH A PAIN SCORE OF 3/10. PATIENT WAS HURT IN A WORK RELATED INJURY ON 03/14/86 WHEN WORKING FOR [employer] WHILE HELPING A 89 YEAR OLD OFF THE COMMODE AND HER KNEES COLLAPSE AND MRS. CARROLL GRABBED THE PATIENT AND WAS PULLED DOWN WITH HER. MRS. CARROLL RECEIVED A LUMBAR FACET BLOCK ON 08/11/16 AND REPORTS HAVING OVER 50% RELIEF IN PAIN WELL INCREASED MOBILITY AND FUNCTIONALITY FOR OVER 6 WEEKS. PATIENT WAS ABLE TO DECREASE MEDICATION DUE TO THE RELIEF FROM THE INJECTION. MRS. CARROLL DENIES ANY BACK SURGERY. PATIENT IS USING CYMBALTA AND TRAMADOL AND STATES THAT THE MEDICATION KEEPS HER FUNCTIONAL AND MOBILE. PATIENT STATES THAT ANY TYPE OF ACTIVITY INCREASES THE PAIN IN THE LOWER BACK AND AT THIS TIME THE PATIENT STATES THAT MEDICATION AIDS IN PAIN RELIEF. MRS. CARROLL STATES THAT PHYSICAL THERAPY DID NOT AID IN PAIN RELIEF. PATIENT DENIES UNEXPLAINABLE WEIGHT LOSS, FEVER, CHILLS, NEW CHANGES ON HER URINARY OR BOWEL CONTROL. FALL RISK SCREENING: SCREENING :NO FALLS IN THE PAST YEAR CURRENT MEDICATIONS TAKING DESLORATADINE 5 MG TABLET 1 TABLET ORALLY ONCE A DAY TAKING FUROSEMIDE 40 MG TABLET 1 TABLET ORALLY TWICE A DAY TAKING ESTRADIOL 1 MG TABLET 1 TABLET ORALLY DAILY TAKING LISINOPRIL 5 MG TABLET 1 TABLET ORALLY ONCE A DAY TAKING LANSOPRAZOLE 30 MG CAPSULE DELAYED RELEASE 1 CAPSULE ORALLY ONCE A DAY TAKING SPIRONOLACTONE 25 MG TABLET 1 TABLET ORALLY DAILY TAKING SINGULAIR 10 MG TABLET 1 TABLET IN THE EVENING ORALLY ONCE A DAY TAKING STOOL SOFTENER 100 MG CAPSULE 1 CAPSULE NEEDED ORALLY TWICE A DAY TAKING ECOTRIN LOW STRENGTH 81 MG TABLET DELAYED RELEASE 1 TABLET ORALLY ONCE A DAY TAKING SYMBICORT 160-4.5 MCG/ACT AEROSOL 2 PUFFS INHALATION TWICE A DAY TAKING ASTEPRO 0.15 % SOLUTION 2 SPRAYS IN EACH NOSTRIL NASALLY PRN TAKING LEVOTHYROXINE SODIUM 25 MCG TABLET 1 TABLET ORALLY ONCE A DAY TAKING MELOXICAM 15 MG TABLET 1 CAPSULE ORALLY ONCE A DAY TAKING CYMBALTA 60 MG CAPSULE DELAYED RELEASE PARTICLES 1 CAPSULE ORALLY ONCE A DAY BILL W/C TAKING TRAMADOL HCL ER 300 MG TABLET EXTENDED RELEASE 24 HOUR 1 TABLET ORALLY ( CODE D FOR CHRONIC PAIN ) ONCE A DAY MDD=1 TAKING FLONASE 50 MCG/DOSE INHALER 1 SPRAY IN EACH NOSTRIL NASALLY ONCE A DAY TAKING FLUOCINOLONE ACETONIDE BODY 0.01 % OIL 1 APPLICATION TO AFFECTED AREA AT BEDTIME EXTERNALLY ONCE A DAY TAKING KLOR-CON SPRINKLE 10 MEQ CAPSULE EXTENDED RELEASE 1 CAPSULE WITH FOOD ORALLY DAILY TAKING LORATADINE 10 MG TABLET 1 TABLET ORALLY ONCE A DAY TAKING OMEPRAZOLE 20 MG CAPSULE DELAYED RELEASE 1 CAPSULE ORALLY ONCE A DAY TAKING ATORVASTATIN CALCIUM 20 MG TABLET 1 TABLET ORALLY ONCE A DAY TAKING ZYRTEC ALLERGY 10 MG TABLET 1 TABLET ORALLY ONCE A DAY TAKING BREO ELLIPTA 200-25 MCG/INH AEROSOL POWDER BREATH ACTIVATED 1 PUFF INHALATION ONCE A DAY TAKING VENTOLIN HFA 90 MCG/ACT AEROSOL SOLUTION 2 PUFFS NEEDED INHALATION EVERY 4 HRS TAKING VITAMIN D3 COMPLETE - TABLET ORALLY NOT-TAKING PROAIR HFA 108 (90 BASE) MCG/ACT AEROSOL SOLUTION 2 PUFFS INHALATION BID NOT-TAKING NASONEX 50 MCG/ACT SUSPENSION 2 SPRAYS IN EACH NOSTRIL NASALLY BID MEDICATION LIST REVIEWED AND RECONCILED WITH THE PATIENT PAST MEDICAL HISTORY HIGH CHOLESTORAL HYPOTHYROIDISM HYPERTENSION FLUID RETENTION BACK PAIN ALLERGIES LATEX (FOR ALLERGY USE ONLY): RASH: ALLERGY CECLOR: HIVES: ALLERGY AMOXICILLIN: HIVES: ALLERGY SULFA (FOR ALLERGY USE ONLY): HIVES: ALLERGY SURGICAL HISTORY TOTAL HYSTERECTOMY 2013 CHOLECYSTECTOMY 2010 RIGHT KNEE ARTHROSCOPY 1994 TORN LATERAL MENISCUS 2008 RIGHT BREAST LUMPECTOMY BENIGN 1992 HOSPITALIZATION/MAJOR DIAGNOSTIC PROCEDURE GI BLEED UNKNOWN CAUSE 2013 REVIEW OF SYSTEMS REVIEWED BY: PROVIDER: RIMA ANDRADE MD . CONSTITUTIONAL: ANY CHANGE IN YOUR MEDICAL CONDITION? NO . CHILLS NO . FEVER NO . INFECTION: DO YOU HAVE NEW INFECTIONS? NO . DO YOU HAVE HISTORY OF MRSA? NO . MUSCULOSKELETAL: ANY NEW PATTERNS OF PAIN OR NUMBNESS? YES, PT STATES WHEN SHE WAS ON TRAMADOLE AND CYMBALTA, HER LEG PAIN WAS WELL CONTROLLED. PT WAS THEN TAKEN OFF THESE MEDS FOR SURGERY 08/2016. PT WAS ADVISED TO STAY OFF TRAMADOL AND CYMBALTA, WHICH SHE DID, BUT NOW PAIN IS BACK. . GASTROENTEROLOGY: ANY NEW CHANGE IN BOWEL CONTROL? NO . GENITOURINARY: ANY NEW CHANGE IN BLADDER CONTROL? NO . IS THERE A CHANCE YOU COULD BE ? NO . HEMATOLOGY/LYMPH: DO YOU TAKE ANY BLOOD THINNERS? (FOR EXAMPLE- COUMADIN, PLAVIX, AGGRENOX, PLATEL, PRADAXA, OR XARELTO) NO . WHEN WAS YOUR LAST DOSE? DATE: TIME: . NEUROLOGY: HAVE YOU FALLEN IN THE PAST 6 MONTHS? NO . ANY NEW EXTREMITY NUMBNESS OR WEAKNESS? NO . CARDIOLOGY: DO YOU HAVE A PACEMAKER OR DEFIBRILLATOR? NO . RESPIRATORY: HAVE YOU BEEN SICK IN THE PAST WEEK? NO . FEVER NO . FLU LIKE SYMPTOMS? NO . COUGH NO . INTEGUMENTARY: DO YOU HAVE ANY RASHES OR OPEN SORES? NO . ALLERGIC/IMMUNO: ARE YOU ALLERGIC TO SHELLFISH OR IV DYE? NO . ANY NEW ALLERGIES? NO . PSYCHIATRIC: DO YOU HAVE THOUGHTS OF HURTING YOURSELF OR SOMEONE ELSE? NO . ARE YOU ABUSED, NEGLECTED, OR IN AN UNSAFE ENVIRONMENT? NO . ENDOCRINOLOGY: ARE YOU DIABETIC? NO . OTHER: DO YOU NEED ANY PRESCRIPTIONS? NO . IF YES, PLEASE LIST: ____ . ANY NEW PROBLEMS WITH YOUR MEDICATIONS? NO . WHEN DID YOU LAST EAT? ____ . WHEN DID YOU LAST DRINK? ____ . WHAT DID YOU LAST DRINK? ____ . NAME OF PERSON DRIVING YOU HOME? ____ . DO YOU HAVE ANY OTHER QUESTIONS OR CONCERNS NO . VITAL SIGNS WT 283 LBS, HT 63 IN, BMI 50.13 INDEX, BP 136/66 MM HG, HR 96 /MIN, RR 18 /MIN, TEMP 98.0 F, OXYGEN SAT % 96%, SAFE IN ENV? (Y/N) Y, NA INITIALS CT 13:59, REVIEWED BY: EM. EXAMINATION : PATIENT IS ALERT O X 3 AND COOPERATIVE. THERE IS TENDERNESS IN THE LUMBAR PARASPINAL MUSCLE GROUP ON THE LEFT AND RIGHT SIDE BUT MAINLY THE LEFT. PATIENT IS ABLE TO FLEX HER BACK AT 45 DEGREES AND EXTEND AT 5 DEGREES. THE PATIENT'S LEFT LEG IS WEAKER AT FLEXION AND EXTENSION COMPARED TO THE RIGHT LEG. MRI OF THE LUMBAR SPINE DONE ON 10/23/2008 SHOWS MULTIPLE DISC BULGES AT MULTIPLE LEVELS. ASSESSMENTS SPONDYLOSIS WITHOUT MYELOPATHY OR RADICULOPATHY, LUMBAR REGION - M47.816 (PRIMARY) SPONDYLOSIS WITHOUT MYELOPATHY OR RADICULOPATHY, LUMBOSACRAL REGION - M47.817 MYALGIA - M79.1 TREATMENT SPONDYLOSIS WITHOUT MYELOPATHY OR RADICULOPATHY, LUMBAR REGION REFILL CYMBALTA CAPSULE DELAYED RELEASE PARTICLES, 30 MG, 1 CAPSULE, ORALLY, BID WITH FOOD FOR PAIN MDD2, 30 DAY(S), 60, REFILLS 2 NOTES: WE DISCUSSED SEVERAL ISSUES WITH MRS. CARROLL'S PAIN MANAGEMENT CASE. PATIENT WILL CONTINUE WITH THE SAME MEDICATION REGIME BEFORE. PATIENT DENIES ABUSE OF ANY MEDICATION, DENIES USE OF ILLEGAL SUBSTANCES, AND STATES THAT SHE IS ONLY USING THE MEDICATION FOR PAIN MANAGEMENT. PATIENT BROUGHT MEDICATIONS IN THERE ORIGINAL BOTTLES TO TODAY'S VISIT. URINE TOXICOLOGY REPORT DONE ON 05/30/16 SHOWS CONSISTENT RESULTS WITH THE PATIENT'S MEDICATION LIST. PATIENT STATES THAT SHE IS STILL RECEIVING BENEFITS FROM THE LUMBAR FACET BLOCK DONE ON 08/11/16. PATIENT DOES NOT WANT TO MOVE FORWARD WITH ANY INTERVENTIONS AT THIS TIME HER PAIN IS MANAGEABLE AFTER THE INJECTION. PATIENT WILL RETURN TO THE CLINIC IN 3 WEEKS. INSTRUCTIONS WERE GIVEN, QUESTIONS WERE ANSWERED, PATIENT REPORTS UNDERSTANDING AND AGREES WITH THE PLAN. I, MARIAELENA ORTEGA, DOCUMENTED THE ABOVE INFORMATION ACTING A SCRIBE FOR DR. ANDRADE. I HAVE REVIEWED THE ABOVE DOCUMENT, WRITTEN BY MARIAELENA BOUDREAUX AND I VERIFY THAT IT IS ACCURATE. PROCEDURES PN WORKMANS' COMP OPINION IN YOUR OPINION, WAS THE INCIDENT THAT THE PATIENT DESCRIBED THE COMPETENT MEDICAL CAUSE OF THIS INJURY/ILLNESS? YES ARE THE PATIENT'S COMPLAINTS CONSISTENT WITH HIS/HER HISTORY OF THE INJURY/ILLNESS? YES IS THE PATIENT'S HISTORY OF THE INJURY/ILLNESS CONSISTENT WITH YOUR OBJECTIVE FINDING? YES WHAT IS THE PERCENTAGE OF TEMPORARY IMPAIRMENT? MODERATE TO MARKED = 66.7% IS THE PATIENT WORKING? NO DOCTOR ON SITE: RIMA GUERRERO MD PROCEDURE CODES FA211 ESTABILISHED PATIENT [facility] FACILITY CHARGE G8427 DOC MEDS VERIFIED W/PT OR RE G8730 PAIN ASSESS POS TOOL F/U PLAN DOC DISPOSITION & COMMUNICATION FOLLOW UP 3 WEEKS ELECTRONICALLY SIGNED BY RIMA ANDRADE MD ON 11/03/2016 AT 08:50 PM EDT DISCLAIMER : THIS IS A VISIT SUMMARY EXTRACTED FROM THE [employer] CHART. IT IS NOT A COPY OF THE [employer] PROGRESS NOTE. MTDD
== END ==
LOC: M PAIN 14:00
PROVIDERS: ATTEND Anesthesiology
DX: G89.29 Other chronic pain (principal); M47.816 Spondylosis without myelopathy or radiculopathy, lumbar region; M47.817 Spondylosis without myelopathy or radiculopathy, lumbosacral region; M79.1 Myalgia; E78.00 Pure hypercholesterolemia, unspecified; E03.9 Hypothyroidism, unspecified; I10 Essential (primary) hypertension; Z91.040 Latex allergy status; Z88.2 Allergy status to sulfonamides; Z88.1 Allergy status to other antibiotic agents; Z88.8 Allergy status to other drugs, medicaments and biological substances; Z79.891 Long term (current) use of opiate analgesic; Z79.51 Long term (current) use of inhaled steroids; Z79.899 Other long term (current) drug therapy

== ENCOUNTER → 2016-11-13 | Outpatient (CLI) | payer OTHER ==
--- NOTE | 2016-12-01 01:18 | ECWPNPC ---
PATIENT NAME: GLORIA CARROLL : 1950 GENDER: FEMALE VISIT DATE: 11/13/2016 DISCHARGE DATE: 11/13/16 1158 VISIT LOCKED DATE TIME: PHYSICIAN: RIMA ANDRADE RESOURCE: RIMA ANDRADE REASON FOR APPOINTMENT 1. W/C LOW BACK PAIN HISTORY OF PRESENT ILLNESS HISTORY OF PRESENT ILLNESS: PAIN THE PATIENT DESCRIBES THE PAIN... 65 YEAR OLD FEMALE PATIENT WITH HISTORY OF CHRONIC LOW BACK PAIN. PATIENT DESCRIBES THE PAIN ACHING AND TENDER WITH A PAIN SCORE OF 3/10. PATIENT WAS HURT IN A WORK RELATED INJURY ON 03/14/86 WHEN WORKING FOR [employer] WHILE HELPING A 89 YEAR OLD OFF THE COMMODE AND HER KNEES COLLAPSE AND MRS. CARROLL GRABBED THE PATIENT AND WAS PULLED DOWN WITH HER. MRS. CARROLL RECEIVED A LUMBAR FACET BLOCK ON 08/11/16 AND STATES THAT SHE HAS OVER 50% RELIEF FOR OVER 2 MONTHS WITH INCREASED MOBILITY AND FUNCTIONALITY AND WAS ABLE TO DECREASE THE USE OF HER MEDICATION. PATIENT WAS ABLE TO DECREASE MEDICATION DUE TO THE RELIEF FROM THE INJECTION. MRS. CARROLL DENIES ANY BACK SURGERY. PATIENT IS USING CYMBALTA AND TRAMADOL AND STATES THAT THE MEDICATION KEEPS HER FUNCTIONAL AND MOBILE. PATIENT STATES THAT ANY TYPE OF ACTIVITY INCREASES THE PAIN IN THE LOWER BACK AND AT THIS TIME THE PATIENT STATES THAT MEDICATION AIDS IN PAIN RELIEF. MRS. CARROLL STATES THAT PHYSICAL THERAPY DID NOT AID IN PAIN RELIEF. PATIENT DENIES UNEXPLAINABLE WEIGHT LOSS, FEVER, CHILLS, NEW CHANGES ON HER URINARY OR BOWEL CONTROL. FALL RISK SCREENING: SCREENING :NO FALLS IN THE PAST YEAR CURRENT MEDICATIONS TAKING FUROSEMIDE 40 MG TABLET 1 TABLET ORALLY TWICE A DAY TAKING ESTRADIOL 1 MG TABLET 1 TABLET ORALLY DAILY TAKING LISINOPRIL 5 MG TABLET 1 TABLET ORALLY ONCE A DAY TAKING LANSOPRAZOLE 30 MG CAPSULE DELAYED RELEASE 1 CAPSULE ORALLY ONCE A DAY TAKING SPIRONOLACTONE 25 MG TABLET 1 TABLET ORALLY DAILY TAKING SINGULAIR 10 MG TABLET 1 TABLET IN THE EVENING ORALLY ONCE A DAY TAKING STOOL SOFTENER 100 MG CAPSULE 1 CAPSULE NEEDED ORALLY TWICE A DAY TAKING ECOTRIN LOW STRENGTH 81 MG TABLET DELAYED RELEASE 1 TABLET ORALLY ONCE A DAY TAKING LEVOTHYROXINE SODIUM 25 MCG TABLET 1 TABLET ORALLY ONCE A DAY TAKING MELOXICAM 15 MG TABLET 1 CAPSULE ORALLY ONCE A DAY TAKING FLUOCINOLONE ACETONIDE BODY 0.01 % OIL 1 APPLICATION TO AFFECTED AREA AT BEDTIME EXTERNALLY ONCE A DAY TAKING KLOR-CON SPRINKLE 10 MEQ CAPSULE EXTENDED RELEASE 1 CAPSULE WITH FOOD ORALLY DAILY TAKING LORATADINE 10 MG TABLET 1 TABLET ORALLY ONCE A DAY TAKING OMEPRAZOLE 20 MG CAPSULE DELAYED RELEASE 1 CAPSULE ORALLY ONCE A DAY TAKING ATORVASTATIN CALCIUM 20 MG TABLET 1 TABLET ORALLY ONCE A DAY TAKING ZYRTEC ALLERGY 10 MG TABLET 1 TABLET ORALLY ONCE A DAY TAKING BREO ELLIPTA 200-25 MCG/INH AEROSOL POWDER BREATH ACTIVATED 1 PUFF INHALATION ONCE A DAY TAKING VENTOLIN HFA 90 MCG/ACT AEROSOL SOLUTION 2 PUFFS NEEDED INHALATION EVERY 4 HRS TAKING VITAMIN D3 COMPLETE - TABLET 3 ORALLY TAKING CYMBALTA 30 MG CAPSULE DELAYED RELEASE PARTICLES 1 CAPSULE ORALLY BID WITH FOOD FOR PAIN MDD2 TAKING FLUTICASONE PROPIONATE (INHAL) 50 MCG/BLIST AEROSOL POWDER BREATH ACTIVATED 1 PUFF INHALATION TWICE A DAY TAKING VITAMIN B-12 1000 MCG TABLET CHEWABLE ORALLY NOT-TAKING PROAIR HFA 108 (90 BASE) MCG/ACT AEROSOL SOLUTION 2 PUFFS INHALATION BID NOT-TAKING NASONEX 50 MCG/ACT SUSPENSION 2 SPRAYS IN EACH NOSTRIL NASALLY BID DISCONTINUED DESLORATADINE 5 MG TABLET 1 TABLET ORALLY ONCE A DAY DISCONTINUED SYMBICORT 160-4.5 MCG/ACT AEROSOL 2 PUFFS INHALATION TWICE A DAY DISCONTINUED ASTEPRO 0.15 % SOLUTION 2 SPRAYS IN EACH NOSTRIL NASALLY PRN DISCONTINUED TRAMADOL HCL ER 300 MG TABLET EXTENDED RELEASE 24 HOUR 1 TABLET ORALLY ( CODE D FOR CHRONIC PAIN ) ONCE A DAY MDD=1 DISCONTINUED FLONASE 50 MCG/DOSE INHALER 1 SPRAY IN EACH NOSTRIL NASALLY ONCE A DAY MEDICATION LIST REVIEWED AND RECONCILED WITH THE PATIENT PAST MEDICAL HISTORY HIGH CHOLESTORAL HYPOTHYROIDISM HYPERTENSION FLUID RETENTION BACK PAIN ALLERGIES LATEX (FOR ALLERGY USE ONLY): RASH: ALLERGY CECLOR: HIVES: ALLERGY AMOXICILLIN: HIVES: ALLERGY SULFA (FOR ALLERGY USE ONLY): HIVES: ALLERGY REVIEW OF SYSTEMS REVIEWED BY: PROVIDER: RIMA ANDRADE MD . CONSTITUTIONAL: ANY CHANGE IN YOUR MEDICAL CONDITION? NO . CHILLS NO . FEVER NO . INFECTION: DO YOU HAVE NEW INFECTIONS? NO . DO YOU HAVE HISTORY OF MRSA? NO . MUSCULOSKELETAL: ANY NEW PATTERNS OF PAIN OR NUMBNESS? NO . GASTROENTEROLOGY: ANY NEW CHANGE IN BOWEL CONTROL? NO . GENITOURINARY: ANY NEW CHANGE IN BLADDER CONTROL? NO . IS THERE A CHANCE YOU COULD BE ? NO . HEMATOLOGY/LYMPH: DO YOU TAKE ANY BLOOD THINNERS? (FOR EXAMPLE- COUMADIN, PLAVIX, AGGRENOX, PLATEL, PRADAXA, OR XARELTO) NO . WHEN WAS YOUR LAST DOSE? DATE: TIME: . NEUROLOGY: HAVE YOU FALLEN IN THE PAST 6 MONTHS? NO . ANY NEW EXTREMITY NUMBNESS OR WEAKNESS? NO . CARDIOLOGY: DO YOU HAVE A PACEMAKER OR DEFIBRILLATOR? NO . RESPIRATORY: HAVE YOU BEEN SICK IN THE PAST WEEK? NO . FEVER NO . FLU LIKE SYMPTOMS? NO . COUGH NO . INTEGUMENTARY: DO YOU HAVE ANY RASHES OR OPEN SORES? NO . ALLERGIC/IMMUNO: ARE YOU ALLERGIC TO SHELLFISH OR IV DYE? NO . ANY NEW ALLERGIES? NO . PSYCHIATRIC: DO YOU HAVE THOUGHTS OF HURTING YOURSELF OR SOMEONE ELSE? NO . ARE YOU ABUSED, NEGLECTED, OR IN AN UNSAFE ENVIRONMENT? NO . ENDOCRINOLOGY: ARE YOU DIABETIC? NO . OTHER: DO YOU NEED ANY PRESCRIPTIONS? NO . IF YES, PLEASE LIST: ____ . ANY NEW PROBLEMS WITH YOUR MEDICATIONS? NO . WHEN DID YOU LAST EAT? ____ . WHEN DID YOU LAST DRINK? ____ . WHAT DID YOU LAST DRINK? ____ . NAME OF PERSON DRIVING YOU HOME? ____ . DO YOU HAVE ANY OTHER QUESTIONS OR CONCERNS NO . VITAL SIGNS WT 284.4 LBS, HT 63 IN, BMI 50.37 INDEX, BP 125/77 MM HG, HR 90 /MIN, RR 18 /MIN, TEMP 97.6 F, OXYGEN SAT % 96, SAFE IN ENV? (Y/N) Y, NA INITIALS MP 1131, REVIEWED BY: MARISEL. EXAMINATION : PATIENT IS ALERT O X 3 AND COOPERATIVE. THERE IS TENDERNESS IN THE LUMBAR PARASPINAL MUSCLE GROUP ON THE LEFT AND RIGHT SIDE BUT MAINLY THE LEFT. PATIENT IS ABLE TO FLEX HER BACK AT 45 DEGREES AND EXTEND AT 5 DEGREES. THE PATIENT'S LEFT LEG IS WEAKER AT FLEXION AND EXTENSION COMPARED TO THE RIGHT LEG. MRI OF THE LUMBAR SPINE DONE ON 10/23/2008 SHOWS MULTIPLE DISC BULGES AT MULTIPLE LEVELS. ASSESSMENTS SPONDYLOSIS WITHOUT MYELOPATHY OR RADICULOPATHY, LUMBAR REGION - M47.816 (PRIMARY) SPONDYLOSIS WITHOUT MYELOPATHY OR RADICULOPATHY, LUMBOSACRAL REGION - M47.817 TREATMENT SPONDYLOSIS WITHOUT MYELOPATHY OR RADICULOPATHY, LUMBAR REGION REFILL CYMBALTA CAPSULE DELAYED RELEASE PARTICLES, 30 MG, 1 CAPSULE, ORALLY, BID WITH FOOD FOR PAIN MDD2, 30 DAY(S), 60, REFILLS 2 NOTES: FACET JOINT INJECTION MATERIAL WAS PRINTED,FACET JOINT INJECTION: YOUR EXPERIENCE MATERIAL WAS PRINTED. CLINICAL NOTES: WE DISCUSSED SEVERAL ISSUES WITH MRS. CARROLL'S PAIN MANAGEMENT CASE. PATIENT WILL CONTINUE WITH THE SAME MEDICATION REGIME BEFORE. PATIENT IS USING CYMBALTA FOR THE NEUROPATHIC PAIN AND TRAMADOL FOR THE SOMATIC PAIN. PATIENT DENIES ABUSE OF ANY MEDICATION, DENIES USE OF ILLEGAL SUBSTANCES, AND STATES THAT SHE IS ONLY USING THE MEDICATION FOR PAIN MANAGEMENT. PATIENT BROUGHT MEDICATIONS IN THERE ORIGINAL BOTTLES TO TODAY'S VISIT. URINE TOXICOLOGY REPORT DONE ON 05/30/16 SHOWS CONSISTENT RESULTS WITH THE PATIENT'S MEDICATION LIST. DUE TO THE PATIENT RECEIVING OVER 2 MONTHS OF PAIN RELIEF FROM THE LEFT THERAPEUTIC LUMBAR L3-L4, L4-L5, AND L5-S1 FACET BLOCK I WOULD LIKE TO PROCEED WITH ANOTHER. WE DISCUSSED THE RISKS, BENENFITS, AND ALTNERATIVES OF THE INJECTION AND THE PATIENT WOULD LIKE TO PROCEED AT THIS TIME. INSTRUCTIONS WERE GIVEN, QUESTIONS WERE ANSWERED, PATIENT REPORTS UNDERSTANDING AND AGREES WITH THE PLAN. I, MARIAELENA ORTEGA, DOCUMENTED THE ABOVE INFORMATION ACTING A SCRIBE FOR DR. ANDRADE. I HAVE REVIEWED THE ABOVE DOCUMENT, WRITTEN BY MARIAELENA BOUDREAUX AND I VERIFY THAT IT IS ACCURATE. PROCEDURES PN WORKMANS' COMP OPINION IN YOUR OPINION, WAS THE INCIDENT THAT THE PATIENT DESCRIBED THE COMPETENT MEDICAL CAUSE OF THIS INJURY/ILLNESS? YES ARE THE PATIENT'S COMPLAINTS CONSISTENT WITH HIS/HER HISTORY OF THE INJURY/ILLNESS? YES IS THE PATIENT'S HISTORY OF THE INJURY/ILLNESS CONSISTENT WITH YOUR OBJECTIVE FINDING? YES WHAT IS THE PERCENTAGE OF TEMPORARY IMPAIRMENT? MODERATE TO MARKED = 66.7% IS THE PATIENT WORKING? NO DOCTOR ON SITE: RIMA GUERRERO MD PROCEDURE CODES FA211 ESTABILISHED PATIENT [facility] FACILITY CHARGE G8427 DOC MEDS VERIFIED W/PT OR RE G8730 PAIN ASSESS POS TOOL F/U PLAN DOC DISPOSITION & COMMUNICATION FOLLOW UP 3 WEEKS ELECTRONICALLY SIGNED BY RIMA ANDRADE MD ON 11/30/2016 AT 12:30 PM EDT DISCLAIMER : THIS IS A VISIT SUMMARY EXTRACTED FROM THE [employer] CHART. IT IS NOT A COPY OF THE [employer] PROGRESS NOTE. MTDD
== END ==
LOC: M PAIN 11:40
PROVIDERS: ATTEND Anesthesiology
DX: G89.29 Other chronic pain (principal); M47.816 Spondylosis without myelopathy or radiculopathy, lumbar region; M47.817 Spondylosis without myelopathy or radiculopathy, lumbosacral region; E03.9 Hypothyroidism, unspecified; I10 Essential (primary) hypertension; Z91.040 Latex allergy status; Z88.1 Allergy status to other antibiotic agents; Z88.2 Allergy status to sulfonamides; Z88.8 Allergy status to other drugs, medicaments and biological substances; Z79.51 Long term (current) use of inhaled steroids; Z79.899 Other long term (current) drug therapy

== ENCOUNTER → 2017-01-05 | Outpatient (CLI) | payer OTHER ==
[~2017-01-05] MED LIST changes: +BUPIVACAINE HCL 0.25% 30 ML VIAL As Ordered ONE; +ISOVUE-M 300 61% 15ML VIAL (Q9967) As Ordered ONE; +LIDOCAINE 1% SDV INJ 30 ML VIAL As Ordered ONE; +TRIAMCINOLONE ACETONIDE SUSP 40 MG/ML VIAL (J3301) As Ordered ONE; +diazePAM 5 MG TAB As Ordered ONE; +oxyCODONE 5MG TAB As Ordered ONE
--- NOTE | 2017-01-06 00:17 | ECWPNPC ---
PATIENT NAME: GLORIA CARROLL : 1950 GENDER: FEMALE VISIT DATE: 01/05/2017 DISCHARGE DATE: 01/05/17 1336 VISIT LOCKED DATE TIME: PHYSICIAN: RIMA ANDRADE RESOURCE: RIMA ANDRADE REASON FOR APPOINTMENT 1. LUMBAR FACET BLOCK HISTORY OF PRESENT ILLNESS HISTORY OF PRESENT ILLNESS: PAIN THE PATIENT DESCRIBES THE PAIN... FALL RISK SCREENING: SCREENING :NO FALLS IN THE PAST YEAR CURRENT MEDICATIONS TAKING FUROSEMIDE 40 MG TABLET 1 TABLET ORALLY TWICE A DAY, NOTES: 01/05/17 1000 TAKING ESTRADIOL 1 MG TABLET 1 TABLET ORALLY DAILY, NOTES: 01/05/17 1000 TAKING LISINOPRIL 5 MG TABLET 1 TABLET ORALLY ONCE A DAY, NOTES: 12/2616 1000 TAKING LANSOPRAZOLE 30 MG CAPSULE DELAYED RELEASE 1 CAPSULE ORALLY ONCE A DAY, NOTES: 01/05/17 1000 TAKING SPIRONOLACTONE 25 MG TABLET 1 TABLET ORALLY DAILY, NOTES: 01/05/17 1000 TAKING SINGULAIR 10 MG TABLET 1 TABLET IN THE EVENING ORALLY ONCE A DAY, NOTES: 01/05/17 1000 TAKING STOOL SOFTENER 100 MG CAPSULE 1 CAPSULE NEEDED ORALLY TWICE A DAY, NOTES: 01/03/17 TAKING ECOTRIN LOW STRENGTH 81 MG TABLET DELAYED RELEASE 1 TABLET ORALLY ONCE A DAY, NOTES: 01/05/17 1000 TAKING LEVOTHYROXINE SODIUM 25 MCG TABLET 1 TABLET ORALLY ONCE A DAY, NOTES: 01/05/17 1000 TAKING MELOXICAM 15 MG TABLET 1 CAPSULE ORALLY ONCE A DAY, NOTES: 01/05/17 1000 TAKING FLUOCINOLONE ACETONIDE BODY 0.01 % OIL 1 APPLICATION TO AFFECTED AREA AT BEDTIME EXTERNALLY ONCE A DAY, NOTES: 01/04/17 2100 TAKING KLOR-CON SPRINKLE 10 MEQ CAPSULE EXTENDED RELEASE 1 CAPSULE WITH FOOD ORALLY DAILY, NOTES: 01/05/17 1000 TAKING LORATADINE 10 MG TABLET 1 TABLET ORALLY ONCE A DAY, NOTES: 01/05/17 1000 TAKING OMEPRAZOLE 20 MG CAPSULE DELAYED RELEASE 1 CAPSULE ORALLY ONCE A DAY, NOTES: 01/05/17 1000 TAKING ATORVASTATIN CALCIUM 20 MG TABLET 1 TABLET ORALLY ONCE A DAY, NOTES: 01/05/17 1000 TAKING ZYRTEC ALLERGY 10 MG TABLET 1 TABLET ORALLY ONCE A DAY, NOTES: 01/05/17 1000 TAKING BREO ELLIPTA 200-25 MCG/INH AEROSOL POWDER BREATH ACTIVATED 1 PUFF INHALATION ONCE A DAY, NOTES: 01/04/172099 TAKING VENTOLIN HFA 90 MCG/ACT AEROSOL SOLUTION 2 PUFFS NEEDED INHALATION EVERY 4 HRS, NOTES: 01/04/172099 TAKING VITAMIN D3 COMPLETE - TABLET 5 ORALLY DAILY, NOTES: 01/05/17 1000 TAKING FLUTICASONE PROPIONATE (INHAL) 50 MCG/BLIST AEROSOL POWDER BREATH ACTIVATED 1 PUFF INHALATION TWICE A DAY, NOTES: 01/04/172099 TAKING VITAMIN B-12 1000 MCG TABLET CHEWABLE ORALLY , NOTES: 01/05/17 1000 TAKING CYMBALTA 30 MG CAPSULE DELAYED RELEASE PARTICLES 1 CAPSULE ORALLY BID WITH FOOD FOR PAIN MDD2, NOTES: 01/05/172099 NOT-TAKING PROAIR HFA 108 (90 BASE) MCG/ACT AEROSOL SOLUTION 2 PUFFS INHALATION BID NOT-TAKING NASONEX 50 MCG/ACT SUSPENSION 2 SPRAYS IN EACH NOSTRIL NASALLY BID MEDICATION LIST REVIEWED AND RECONCILED WITH THE PATIENT PAST MEDICAL HISTORY HIGH CHOLESTORAL HYPOTHYROIDISM HYPERTENSION FLUID RETENTION BACK PAIN ALLERGIES LATEX (FOR ALLERGY USE ONLY): RASH: ALLERGY CECLOR: HIVES: ALLERGY AMOXICILLIN: HIVES: ALLERGY SULFA (FOR ALLERGY USE ONLY): HIVES: ALLERGY SURGICAL HISTORY TOTAL HYSTERECTOMY 2013 CHOLECYSTECTOMY 2010 RIGHT KNEE ARTHROSCOPY 1994 TORN LATERAL MENISCUS 2008 RIGHT BREAST LUMPECTOMY BENIGN 1992 COLON FISTULA REPAIR SOCIAL HISTORY GENERAL: PAIN CLINIC PFS, CLERGY, PUBLIC HEALTH REFERRALS PFS REFERRAL NEEDED?NO CLERGY REFERRAL NEEDED?NO PUBLIC HEALTH REFERRAL NEEDED?NO WAS THE PROVIDER NOTIFIED OF ANY PERTINENT INFO?YES HAS THE PATIENT BEEN EDUCATED REGARDING HIS/HER PLAN OF CARE?YES HAS THE PATIENT BEEN EDUCATED REGARDING PAIN, THE RISK FOR PAIN, THE IMPORTANCE OF EFFECTIVE PAIN MANAGEMENT, AND THE PAIN ASSESSMENT PROCESS?YES PATIENT: ____. HOSPITALIZATION/MAJOR DIAGNOSTIC PROCEDURE GI BLEED UNKNOWN CAUSE 2013 REVIEW OF SYSTEMS REVIEWED BY: PROVIDER: . CONSTITUTIONAL: ANY CHANGE IN YOUR MEDICAL CONDITION? NO . CHILLS NO . FEVER NO . INFECTION: DO YOU HAVE NEW INFECTIONS? NO . DO YOU HAVE HISTORY OF MRSA? NO . MUSCULOSKELETAL: ANY NEW PATTERNS OF PAIN OR NUMBNESS? NO . GASTROENTEROLOGY: ANY NEW CHANGE IN BOWEL CONTROL? NO . GENITOURINARY: ANY NEW CHANGE IN BLADDER CONTROL? NO . IS THERE A CHANCE YOU COULD BE ? NO . HEMATOLOGY/LYMPH: DO YOU TAKE ANY BLOOD THINNERS? (FOR EXAMPLE- COUMADIN, PLAVIX, AGGRENOX, PLATEL, PRADAXA, OR XARELTO) NO . WHEN WAS YOUR LAST DOSE? DATE: TIME: . NEUROLOGY: HAVE YOU FALLEN IN THE PAST 6 MONTHS? NO . ANY NEW EXTREMITY NUMBNESS OR WEAKNESS? NO . CARDIOLOGY: DO YOU HAVE A PACEMAKER OR DEFIBRILLATOR? NO . RESPIRATORY: HAVE YOU BEEN SICK IN THE PAST WEEK? NO . FEVER NO . FLU LIKE SYMPTOMS? NO . COUGH NO . INTEGUMENTARY: DO YOU HAVE ANY RASHES OR OPEN SORES? NO . ALLERGIC/IMMUNO: ARE YOU ALLERGIC TO SHELLFISH OR IV DYE? NO . ANY NEW ALLERGIES? NO . PSYCHIATRIC: DO YOU HAVE THOUGHTS OF HURTING YOURSELF OR SOMEONE ELSE? NO . ARE YOU ABUSED, NEGLECTED, OR IN AN UNSAFE ENVIRONMENT? NO . ENDOCRINOLOGY: ARE YOU DIABETIC? NO . OTHER: DO YOU NEED ANY PRESCRIPTIONS? NO . IF YES, PLEASE LIST: ____ . ANY NEW PROBLEMS WITH YOUR MEDICATIONS? NO . WHEN DID YOU LAST EAT? 01/05/17 1000 . WHEN DID YOU LAST DRINK? 01/05/17 1000 . WHAT DID YOU LAST DRINK? JUICE . NAME OF PERSON DRIVING YOU HOME? DIXON . DO YOU HAVE ANY OTHER QUESTIONS OR CONCERNS NO . VITAL SIGNS WT 282.8 LBS, HT 63 IN, BMI 50.09 INDEX, BP 122/66 MM HG, HR 102 /MIN, RR 18 /MIN, TEMP 98.4 F, OXYGEN SAT % 96%, NA INITIALS AW 1103. ASSESSMENTS SPONDYLOSIS OF LUMBAR REGION WITHOUT MYELOPATHY OR RADICULOPATHY - M47.816 (PRIMARY) SPONDYLOSIS OF LUMBOSACRAL REGION WITHOUT MYELOPATHY OR RADICULOPATHY - M47.817 PROCEDURES PN WORKMANS' COMP OPINION IN YOUR OPINION, WAS THE INCIDENT THAT THE PATIENT DESCRIBED THE COMPETENT MEDICAL CAUSE OF THIS INJURY/ILLNESS? YES ARE THE PATIENT'S COMPLAINTS CONSISTENT WITH HIS/HER HISTORY OF THE INJURY/ILLNESS? YES IS THE PATIENT'S HISTORY OF THE INJURY/ILLNESS CONSISTENT WITH YOUR OBJECTIVE FINDING? YES WHAT IS THE PERCENTAGE OF TEMPORARY IMPAIRMENT? MODERATE TO MARKED = 66.7% IS THE PATIENT WORKING? NO DOCTOR ON SITE: MD MARLEN MELENDEZ LUMBAR FACET BLOCK THERAPEUTIC PRE PROCEDURE DIAGNOSIS LUMBAR SPONDYLOSIS, LUMBOSACRAL SPONDYLOSIS POST PROCEDURE DIAGNOSIS LUMBAR SPONDYLOSIS, LUMBOSACRAL SPONDYLOSIS PROCEDURE LEFT L4-L5 AND LEFT L5-S1 LUMBAR FACET THERAPEUTIC BLOCK SURGEON DR. RIMA ANDRADE FIRE PROTECTION INSPECTOR NONE ANESTHESIA LOCAL PRE PROCEDURE NOTE THE PATIENT HAS A HISTORY OF CHRONIC LOW BACK PAIN. I EVALUATE THE PATIENT AND REVIEWED THE CHART. I WENT OVER THE RISKS, ALTERNATIVES, AND BENEFITS ASSOCIATED WITH THIS PROCEDURE. THE PATIENT WOULD LIKE TO PROCEED AND GIVE CONSENT TO PERFORMED THE PROCEDURE. THE PATIENT DENIES UNEXPLAINABLE WEIGHT LOSS, FEVER, CHILLS, OR NEW CHANGES IN URINARY OR BOWEL CONTROL DESCRIPTION OF PROCEDURE THE PATIENT WAS BROUGHT TO THE PROCEDURE ROOM AND PLACED IN THE PRONE POSITION. THE LUMBOSACRAL AREA WAS CLEANED WITH CHLORAPREP SOLUTION AND DRAPED ASEPTICALLY. THE PROCEDURE WAS DONE UNDER STERILE CONDITIONS. I CHECKED LATERALITY AND THE LEVEL WHERE THE PROCEDURE WAS GOING TO BE PERFORMED WITH THE PATIENT AND THE SUPPORTING STAFF AT THE MOMENT OF THE TIME OUT IN THE PROCEDURE ROOM. UNDER FLUOROSCOPIC GUIDANCE, THE TARGET POINT WAS SELECTED AT THE LEFT L4-L5 AND LEFT L5-S1 FACET JOINT. TARGET POINT WAS SELECTED AFTER LATERAL ROTATION AND TILT OF THE MAGNIFIER OF THE C-ARM. LIDOCAINE 0.5% WAS USED TO NUMB THE SKIN AND THE SUBCUTANEOUS TISSUE BELOW IT. SPINAL NEEDLES, 22-GAUGE, WERE ADVANCED UNDER FLUOROSCOPIC GUIDANCE AND FOLLOWING PATIENT FEEDBACK UNTIL THE TARGETS WERE TOUCHED. THE POSITION OF THE NEEDLES WAS VERIFIED WITH AP AND LATERAL VIEWS. AFTER PROPER POSITION OF THE NEEDLES WAS ACHIEVED, ISOVUE-M DYE 30% 0.1 ML WAS INJECTED SHOWING ADEQUATE SPREAD OF THE DYE. THEN A SOLUTION OF 1.9 ML OF BUPIVACAINE 0.125% OF KENALOG 10 MG WAS INJECTED AT EACH SITE. THERE WAS NO EVIDENCE OF BLOOD, PARESTHESIA OR CEREBROSPINAL FLUID DURING THE PROCEDURE. THE PATIENT WAS SENT TO THE RECOVERY ROOM. THE PATIENT WAS MOVING THE EXTREMITIES AND DOING WELL. THERE WAS NO COMPLICATION DURING THE PROCEDURE. FLUOROSCOPY TIME WAS 23 SECONDS POST PROCEDURE NOTE THE PATIENT WILL BE SEEN IN A FOLLOW UP IN THE NEXT FEW WEEKS. INSTRUCTIONS WERE GIVEN, QUESTIONS WERE ANSWERED, AND THE PATIENT EXPRESSED UNDERSTANDING AND AGREES WITH THE PLAN. I, MARIAELENA ORTEGA, DOCUMENTED THE ABOVE INFORMATION ACTING A SCRIBE FOR DR. ANDRADE. I HAVE REVIEWED THE ABOVE DOCUMENT, WRITTEN BY MARIAELENA BOUDREAUX AND I VERIFY THAT IT IS ACCURATE DIAGNOSTIC IMAGING [facility] FACET BLOCK (PAIN)[id number] PROCEDURE CODES 69548 INJ PARAVERT F JNT L/S 1 LEV, [place]: [place] [address] INJ PARAVERT F JNT L/S 2 LEV, MODIFIERS: LT 6045F RADXPS IN END [id number] PXD DISPOSITION & COMMUNICATION FOLLOW UP 3 WEEKS ELECTRONICALLY SIGNED BY RIMA ANDRADE MD ON 01/05/2017 AT 09:51 PM EDT DISCLAIMER : THIS IS A VISIT SUMMARY EXTRACTED FROM THE [employer] CHART. IT IS NOT A COPY OF THE [employer] PROGRESS NOTE. MTDD
--- NOTE | 2017-01-06 17:59 | REP ---
LEFT FACET INJECTION: All imaging was reviewed with Dr. Limon prior to dictation. The portable C-Arm was provided in the OR for Dr. Nicole for fluoroscopic guidance. Three intraoperative fluoroscopic spot films were obtained using last imaging hold technology for needle placement verification for left facet injection. The films are on the PACs system and are available for review. 23 seconds of fluoroscopy time was utilized for this procedure. Reviewed by XANDER York 01/07/2017 08:22 AEdited and Signed by Garret Limon MD 01/07/2017 07:59 P
== END ==
LOC: M PAIN 11:00
PROVIDERS: ATTEND Anesthesiology
DX: G89.29 Other chronic pain (principal); M47.816 Spondylosis without myelopathy or radiculopathy, lumbar region; M47.817 Spondylosis without myelopathy or radiculopathy, lumbosacral region; E03.9 Hypothyroidism, unspecified; I10 Essential (primary) hypertension; E78.00 Pure hypercholesterolemia, unspecified; Z91.040 Latex allergy status; Z88.1 Allergy status to other antibiotic agents; Z88.2 Allergy status to sulfonamides; Z88.8 Allergy status to other drugs, medicaments and biological substances; Z79.51 Long term (current) use of inhaled steroids; Z79.899 Other long term (current) drug therapy
CPT/HCPCS: 64493; 64494; J3301; Q9967

== ENCOUNTER → 2017-02-01 | Outpatient (CLI) | payer OTHER ==
[~2017-02-01] MED LIST changes: -BUPIVACAINE HCL 0.25% 30 ML VIAL As Ordered ONE; -ISOVUE-M 300 61% 15ML VIAL (Q9967) As Ordered ONE; -LIDOCAINE 1% SDV INJ 30 ML VIAL As Ordered ONE; -TRIAMCINOLONE ACETONIDE SUSP 40 MG/ML VIAL (J3301) As Ordered ONE; -diazePAM 5 MG TAB As Ordered ONE; -oxyCODONE 5MG TAB As Ordered ONE
--- NOTE | 2017-02-27 23:24 | ECWPNPC ---
PATIENT NAME: GLORIA CARROLL : 1950 GENDER: FEMALE VISIT DATE: 02/01/2017 DISCHARGE DATE: 02/01/17 1626 VISIT LOCKED DATE TIME: PHYSICIAN: SILVESTRE ALY RESOURCE: SILVESTRE ALY REASON FOR APPOINTMENT 1. POST PROC HISTORY OF PRESENT ILLNESS HISTORY OF PRESENT ILLNESS: HERE FOR POST PROCEDURE F/U AND MANAGEMENT OF PERSISTENT LBP.HAD LEFT L4/5-L5/S1 THERAPEUTIC FACET BLOCK ON 01-05-17.RPORTING 100% IMPROVEMENT THAT CONTINUES TODAY.REPORTING PAIN 0/10. USING CYMBALTA 30MG BID FOR CHRONIC PAIN DAILY.THIS MEDICATION IS BEING PRESCRIBED FOR WORK RELATED INJURY IN 1986.PAIN IS LOCATED ACROSS LOW BACK AND DESCRIBED ACHING AND TENDER. PAIN THE PATIENT DESCRIBES THE PAIN... THE PATIENT DESCRIBES THE PAIN... THE PATIENT DESCRIBES THE PAIN... THE PATIENT DESCRIBES THE PAIN... FALL RISK SCREENING: SCREENING :NO FALLS IN THE PAST YEAR CURRENT MEDICATIONS TAKING FUROSEMIDE 40 MG TABLET 1 TABLET ORALLY TWICE A DAY TAKING ESTRADIOL 1 MG TABLET 1 TABLET ORALLY DAILY TAKING LISINOPRIL 5 MG TABLET 1 TABLET ORALLY ONCE A DAY TAKING LANSOPRAZOLE 30 MG CAPSULE DELAYED RELEASE 1 CAPSULE ORALLY ONCE A DAY TAKING SPIRONOLACTONE 25 MG TABLET 1 TABLET ORALLY DAILY TAKING SINGULAIR 10 MG TABLET 1 TABLET IN THE EVENING ORALLY ONCE A DAY TAKING STOOL SOFTENER 100 MG CAPSULE 1 CAPSULE NEEDED ORALLY TWICE A DAY TAKING ECOTRIN LOW STRENGTH 81 MG TABLET DELAYED RELEASE 1 TABLET ORALLY ONCE A DAY TAKING LEVOTHYROXINE SODIUM 25 MCG TABLET 1 TABLET ORALLY ONCE A DAY TAKING MELOXICAM 15 MG TABLET 1 CAPSULE ORALLY ONCE A DAY TAKING FLUOCINOLONE ACETONIDE BODY 0.01 % OIL 1 APPLICATION TO AFFECTED AREA AT BEDTIME EXTERNALLY ONCE A DAY TAKING KLOR-CON SPRINKLE 10 MEQ CAPSULE EXTENDED RELEASE 1 CAPSULE WITH FOOD ORALLY DAILY TAKING LORATADINE 10 MG TABLET 1 TABLET ORALLY ONCE A DAY TAKING OMEPRAZOLE 20 MG CAPSULE DELAYED RELEASE 1 CAPSULE ORALLY ONCE A DAY TAKING ATORVASTATIN CALCIUM 20 MG TABLET 1 TABLET ORALLY ONCE A DAY TAKING ZYRTEC ALLERGY 10 MG TABLET 1 TABLET ORALLY ONCE A DAY TAKING BREO ELLIPTA 200-25 MCG/INH AEROSOL POWDER BREATH ACTIVATED 1 PUFF INHALATION ONCE A DAY TAKING VENTOLIN HFA 90 MCG/ACT AEROSOL SOLUTION 2 PUFFS NEEDED INHALATION EVERY 4 HRS TAKING VITAMIN D3 COMPLETE - TABLET 5 ORALLY DAILY TAKING FLUTICASONE PROPIONATE (INHAL) 50 MCG/BLIST AEROSOL POWDER BREATH ACTIVATED 1 PUFF INHALATION TWICE A DAY TAKING VITAMIN B-12 1000 MCG TABLET CHEWABLE ORALLY TAKING CYMBALTA 30 MG CAPSULE DELAYED RELEASE PARTICLES 1 CAPSULE ORALLY BID WITH FOOD FOR PAIN MDD2 UNKNOWN PROAIR HFA 108 (90 BASE) MCG/ACT AEROSOL SOLUTION 2 PUFFS INHALATION BID UNKNOWN NASONEX 50 MCG/ACT SUSPENSION 2 SPRAYS IN EACH NOSTRIL NASALLY BID MEDICATION LIST REVIEWED AND RECONCILED WITH THE PATIENT PAST MEDICAL HISTORY HIGH CHOLESTORAL HYPOTHYROIDISM HYPERTENSION FLUID RETENTION BACK PAIN ALLERGIES LATEX (FOR ALLERGY USE ONLY): RASH: ALLERGY CECLOR: HIVES: ALLERGY AMOXICILLIN: HIVES: ALLERGY SULFA (FOR ALLERGY USE ONLY): HIVES: ALLERGY SURGICAL HISTORY TOTAL HYSTERECTOMY 2013 CHOLECYSTECTOMY 2010 RIGHT KNEE ARTHROSCOPY 1993 TORN LATERAL MENISCUS 2008 RIGHT BREAST LUMPECTOMY BENIGN 1992 COLON FISTULA REPAIR FAMILY HISTORY FATHER: 83 YRS, DIAGNOSED WITH HEART DISEASE MOTHER: 70 YRS 1 SISTER(S) . 1 SON(S) , 1 DAUGHTER(S) - HEALTHY. MOM- TO GI BLEED AND SEPSIS, SISTER OF ENCEPHALOPATHY. SOCIAL HISTORY GENERAL: TOBACCO USE ARE YOU A:NONSMOKER ALCOHOL SCREENING POINTS0 INTERPRETATIONNEGATIVE CAFFEINE CAFFEINE USE?NO BUDDHIST [id number] NONE NO NONDENOMINATIONAL BELIEFS THAT WOULD IMPACT HEALTH CARE. LEARNING BARRIERS / SPECIAL NEEDS VISION IMPAIRED?YES :CORRECTIVE LENSES READINESS TO LEARN?YES LEARNING CAPABILITIES PRESENT?YES PAIN CLINIC PFS, CLERGY, PUBLIC HEALTH REFERRALS PFS REFERRAL NEEDED?NO CLERGY REFERRAL NEEDED?NO PUBLIC HEALTH REFERRAL NEEDED?NO WAS THE PROVIDER NOTIFIED OF ANY PERTINENT INFO?YES HAS THE PATIENT BEEN EDUCATED REGARDING HIS/HER PLAN OF CARE?YES HAS THE PATIENT BEEN EDUCATED REGARDING PAIN, THE RISK FOR PAIN, THE IMPORTANCE OF EFFECTIVE PAIN MANAGEMENT, AND THE PAIN ASSESSMENT PROCESS?YES PATIENT: ____. HOSPITALIZATION/MAJOR DIAGNOSTIC PROCEDURE GI BLEED UNKNOWN CAUSE 2013 REVIEW OF SYSTEMS REVIEWED BY: PROVIDER: SILVESTRE REYES . CONSTITUTIONAL: ANY CHANGE IN YOUR MEDICAL CONDITION? WAITING TO HAVE KNEE REPLACEMENT . CHILLS NO . FEVER NO . INFECTION: DO YOU HAVE NEW INFECTIONS? NO . DO YOU HAVE HISTORY OF MRSA? NO . MUSCULOSKELETAL: ANY NEW PATTERNS OF PAIN OR NUMBNESS? NO . GASTROENTEROLOGY: ANY NEW CHANGE IN BOWEL CONTROL? NO . GENITOURINARY: ANY NEW CHANGE IN BLADDER CONTROL? NO . IS THERE A CHANCE YOU COULD BE ? NO . HEMATOLOGY/LYMPH: DO YOU TAKE ANY BLOOD THINNERS? (FOR EXAMPLE- COUMADIN, PLAVIX, AGGRENOX, PLATEL, PRADAXA, OR XARELTO) NO . WHEN WAS YOUR LAST DOSE? DATE: TIME: . NEUROLOGY: HAVE YOU FALLEN IN THE PAST 6 MONTHS? NO . ANY NEW EXTREMITY NUMBNESS OR WEAKNESS? NO . CARDIOLOGY: DO YOU HAVE A PACEMAKER OR DEFIBRILLATOR? NO . RESPIRATORY: HAVE YOU BEEN SICK IN THE PAST WEEK? NO . FEVER NO . FLU LIKE SYMPTOMS? NO . COUGH NO . INTEGUMENTARY: DO YOU HAVE ANY RASHES OR OPEN SORES? NO . ALLERGIC/IMMUNO: ARE YOU ALLERGIC TO SHELLFISH OR IV DYE? NO . ANY NEW ALLERGIES? NO . PSYCHIATRIC: DO YOU HAVE THOUGHTS OF HURTING YOURSELF OR SOMEONE ELSE? NO . ARE YOU ABUSED, NEGLECTED, OR IN AN UNSAFE ENVIRONMENT? NO . ENDOCRINOLOGY: ARE YOU DIABETIC? NO . OTHER: DO YOU NEED ANY PRESCRIPTIONS? NO . IF YES, PLEASE LIST: ____ . ANY NEW PROBLEMS WITH YOUR MEDICATIONS? NO . WHEN DID YOU LAST EAT? ____ . WHEN DID YOU LAST DRINK? ____ . WHAT DID YOU LAST DRINK? ____ . NAME OF PERSON DRIVING YOU HOME? ____ . DO YOU HAVE ANY OTHER QUESTIONS OR CONCERNS NO . VITAL SIGNS WT 278 LBS, HT 63 IN, BMI 49.24 INDEX, BP 117/74 MM HG, HR 99 /MIN, RR 18 /MIN, TEMP 97.5 F, OXYGEN SAT % 95%, NA INITIALS AW 1543, REVIEWED BY: NL. EXAMINATION GENERAL EXAMINATION: LUNGS:LUNG SOUNDS ARE CLEAR. HEART:HEART RATE REGULAR. MUSCULOSKELETAL:*, MUSCLE STRENGTH TESTING 5/5 BILATERAL LOWER EXTREMITIES., PALPATION: NEGATIVE FOR PAIN OVER L/S SPINE. NEGATIVE FOR PAIN OVER L/S PARSPINALS. ASSESSMENTS CHRONIC LOW BACK PAIN WITHOUT SCIATICA, UNSPECIFIED BACK PAIN LATERALITY - M54.5 (PRIMARY) LUMBOSACRAL SPONDYLOLYSIS - M43.07 TREATMENT CHRONIC LOW BACK PAIN WITHOUT SCIATICA, UNSPECIFIED BACK PAIN LATERALITY CONTINUE CYMBALTA CAPSULE DELAYED RELEASE PARTICLES, 30 MG, 1 CAPSULE, ORALLY, BID WITH FOOD FOR PAIN MDD2 PROCEDURES PN WORKMANS' COMP OPINION IN YOUR OPINION, WAS THE INCIDENT THAT THE PATIENT DESCRIBED THE COMPETENT MEDICAL CAUSE OF THIS INJURY/ILLNESS? YES ARE THE PATIENT'S COMPLAINTS CONSISTENT WITH HIS/HER HISTORY OF THE INJURY/ILLNESS? YES IS THE PATIENT'S HISTORY OF THE INJURY/ILLNESS CONSISTENT WITH YOUR OBJECTIVE FINDING? YES WHAT IS THE PERCENTAGE OF TEMPORARY IMPAIRMENT? MODERATE = 50% IS THE PATIENT WORKING? NO DOCTOR ON SITE: RIMA GUERRERO MD PROCEDURE CODES FA211 ESTABILISHED PATIENT [facility] CHARGE DISPOSITION & COMMUNICATION FOLLOW UP 2 MONTHS ELECTRONICALLY SIGNED BY AMY CARRION ON 02/27/2017 AT 06:45 PM EST DISCLAIMER : THIS IS A VISIT SUMMARY EXTRACTED FROM THE [employer] CHART. IT IS NOT A COPY OF THE [employer] PROGRESS NOTE. DEEJAY
== END ==
LOC: M PAIN 15:15
PROVIDERS: ATTEND Nurse Practitioner Family
DX: M54.5 Low back pain (principal); M43.07 Spondylolysis, lumbosacral region; E78.00 Pure hypercholesterolemia, unspecified; E03.9 Hypothyroidism, unspecified; I10 Essential (primary) hypertension; R60.9 Edema, unspecified; Z79.82 Long term (current) use of aspirin; Z79.899 Other long term (current) drug therapy; Z91.040 Latex allergy status; Z88.0 Allergy status to penicillin; Z88.2 Allergy status to sulfonamides; Z88.1 Allergy status to other antibiotic agents

== ENCOUNTER → 2017-05-18 | Outpatient (CLI) | payer OTHER | LOC: M PAIN 13:15 | DX: G89.29 Other chronic pain (principal); M54.5 Low back pain; M43.07 Spondylolysis, lumbosacral region; E78.00 Pure hypercholesterolemia, unspecified; E03.9 Hypothyroidism, unspecified; I10 Essential (primary) hypertension; Z79.51 Long term (current) use of inhaled steroids; Z79.899 Other long term (current) drug therapy; Z88.1 Allergy status to other antibiotic agents; Z88.2 Allergy status to sulfonamides; Z88.8 Allergy status to other drugs, medicaments and biological substances; Z91.040 Latex allergy status | CPT/HCPCS: G0463 ==

== ENCOUNTER → 2017-08-10 | Outpatient (CLI) | payer OTHER | LOC: M PAIN 13:00 | DX: G89.29 Other chronic pain (principal); M54.5 Low back pain; M43.07 Spondylolysis, lumbosacral region; E78.00 Pure hypercholesterolemia, unspecified; E03.9 Hypothyroidism, unspecified; I10 Essential (primary) hypertension; Z79.899 Other long term (current) drug therapy; Z91.040 Latex allergy status; Z88.0 Allergy status to penicillin; Z88.2 Allergy status to sulfonamides; Z88.8 Allergy status to other drugs, medicaments and biological substances; Z91.048 Other nonmedicinal substance allergy status; Z88.1 Allergy status to other antibiotic agents | CPT/HCPCS: G0463 ==

== ENCOUNTER → 2017-10-19 | Outpatient (CLI) | payer OTHER | LOC: M PAIN 11:45 | DX: M54.5 Low back pain (principal); M43.07 Spondylolysis, lumbosacral region; E78.00 Pure hypercholesterolemia, unspecified; E03.9 Hypothyroidism, unspecified; I10 Essential (primary) hypertension; Z79.51 Long term (current) use of inhaled steroids; Z79.899 Other long term (current) drug therapy; Z88.1 Allergy status to other antibiotic agents; Z88.2 Allergy status to sulfonamides; Z88.8 Allergy status to other drugs, medicaments and biological substances; Z91.040 Latex allergy status; Z91.09 Other allergy status, other than to drugs and biological substances | CPT/HCPCS: G0463 ==

== ENCOUNTER → 2018-01-13 | Outpatient (CLI) | payer OTHER | LOC: M PAIN 13:30 | DX: M54.5 Low back pain (principal); M43.07 Spondylolysis, lumbosacral region; E78.00 Pure hypercholesterolemia, unspecified; E03.9 Hypothyroidism, unspecified; I10 Essential (primary) hypertension; Z88.0 Allergy status to penicillin; Z88.2 Allergy status to sulfonamides; Z88.8 Allergy status to other drugs, medicaments and biological substances; Z91.048 Other nonmedicinal substance allergy status; Z91.040 Latex allergy status; Z79.82 Long term (current) use of aspirin; Z79.899 Other long term (current) drug therapy | CPT/HCPCS: G0463 ==

== ENCOUNTER → 2018-04-15 | Outpatient (CLI) | payer OTHER ==
--- NOTE | 2018-04-16 01:51 | ECWPNPC ---
PATIENT NAME: GLORIA CARROLL : 1950 GENDER: FEMALE VISIT DATE: 04/15/2018 DISCHARGE DATE: 04/15/18 1419 VISIT LOCKED DATE TIME: PHYSICIAN: SILVESTRE ALY RESOURCE: SILVESTRE ALY REASON FOR APPOINTMENT 1. W/C BACK HISTORY OF PRESENT ILLNESS HISTORY OF PRESENT ILLNESS: HERE FOR F/U AND MANAGEMENT OF PERSISTENT LBP.REPORTING PAIN 4/10. USING CYMBALTA 30MG BID FOR CHRONIC PAIN DAILY.THIS MEDICATION IS BEING PRESCRIBED FOR WORK RELATED INJURY IN 1985.PAIN IS LOCATED ACROSS LOW BACK AND DESCRIBED ACHING AND TENDER.PAIN IS AGGREVATED BY VACUUMING AND RELIEVED SOMEWHAT AT REST. PAIN THE PATIENT DESCRIBES THE PAIN... THE PATIENT DESCRIBES THE PAIN... THE PATIENT DESCRIBES THE PAIN... THE PATIENT DESCRIBES THE PAIN... THE PATIENT DESCRIBES THE PAIN... THE PATIENT DESCRIBES THE PAIN... THE PATIENT DESCRIBES THE PAIN... THE PATIENT DESCRIBES THE PAIN... THE PATIENT DESCRIBES THE PAIN... FALL RISK SCREENING: SCREENING :NO FALLS IN THE PAST YEAR CURRENT MEDICATIONS TAKING FUROSEMIDE 40 MG TABLET 1 TABLET ORALLY TWICE A DAY TAKING LISINOPRIL 5 MG TABLET 1 TABLET ORALLY ONCE A DAY TAKING SPIRONOLACTONE 25 MG TABLET 1 TABLET ORALLY DAILY TAKING SINGULAIR 10 MG TABLET 1 TABLET IN THE EVENING ORALLY ONCE A DAY TAKING STOOL SOFTENER 100 MG CAPSULE 1 CAPSULE NEEDED ORALLY TWICE A DAY TAKING ECOTRIN LOW STRENGTH 81 MG TABLET DELAYED RELEASE 1 TABLET ORALLY ONCE A DAY TAKING LEVOTHYROXINE SODIUM 25 MCG TABLET 1 TABLET ORALLY ONCE A DAY TAKING MELOXICAM 15 MG TABLET 1 CAPSULE ORALLY ONCE A DAY TAKING FLUOCINOLONE ACETONIDE BODY 0.01 % OIL 1 APPLICATION TO AFFECTED AREA AT BEDTIME EXTERNALLY ONCE A DAY TAKING KLOR-CON SPRINKLE 10 MEQ CAPSULE EXTENDED RELEASE 1 CAPSULE WITH FOOD ORALLY DAILY TAKING LORATADINE 10 MG TABLET 1 TABLET ORALLY ONCE A DAY TAKING OMEPRAZOLE 20 MG CAPSULE DELAYED RELEASE 1 CAPSULE ORALLY ONCE A DAY TAKING ATORVASTATIN CALCIUM 20 MG TABLET 1 TABLET ORALLY ONCE A DAY TAKING ZYRTEC ALLERGY 10 MG TABLET 1 TABLET ORALLY ONCE A DAY TAKING BREO ELLIPTA 200-25 MCG/INH AEROSOL POWDER BREATH ACTIVATED 1 PUFF INHALATION ONCE A DAY TAKING VENTOLIN HFA 90 MCG/ACT AEROSOL SOLUTION 2 PUFFS NEEDED INHALATION EVERY 4 HRS TAKING VITAMIN D3 COMPLETE - TABLET 5 ORALLY DAILY TAKING FLUTICASONE PROPIONATE (INHAL) 50 MCG/BLIST AEROSOL POWDER BREATH ACTIVATED 1 PUFF INHALATION TWICE A DAY TAKING VITAMIN B-12 1000 MCG TABLET CHEWABLE ORALLY TAKING NASONEX 50 MCG/ACT SUSPENSION 2 SPRAYS IN EACH NOSTRIL NASALLY BID TAKING CYMBALTA 30 MG CAPSULE DELAYED RELEASE PARTICLES 1 CAPSULE ORALLY BID WITH FOOD FOR PAIN MDD2, NOTES: WORKERS COMPSENSATION NOT-TAKING ESTRADIOL 1 MG TABLET 1 TABLET ORALLY DAILY NOT-TAKING LANSOPRAZOLE 30 MG CAPSULE DELAYED RELEASE 1 CAPSULE ORALLY ONCE A DAY NOT-TAKING PROAIR HFA 108 (90 BASE) MCG/ACT AEROSOL SOLUTION 2 PUFFS INHALATION BID MEDICATION LIST REVIEWED AND RECONCILED WITH THE PATIENT PAST MEDICAL HISTORY HIGH CHOLESTORAL HYPOTHYROIDISM HYPERTENSION FLUID RETENTION BACK PAIN ALLERGIES LATEX (FOR ALLERGY USE ONLY): RASH: ALLERGY CECLOR: HIVES: ALLERGY AMOXICILLIN: HIVES: ALLERGY SULFA (FOR ALLERGY USE ONLY): HIVES: ALLERGY BANDAGE TAPE: RASH: ALLERGY SURGICAL HISTORY TOTAL HYSTERECTOMY 2012 CHOLECYSTECTOMY 2010 RIGHT KNEE ARTHROSCOPY 1993 TORN LATERAL MENISCUS 2008 RIGHT BREAST LUMPECTOMY BENIGN 1991 COLON FISTULA REPAIR FAMILY HISTORY FATHER: 83 YRS, DIAGNOSED WITH HEART DISEASE MOTHER: 70 YRS 1 SISTER(S) . 1 SON(S) , 1 DAUGHTER(S) - HEALTHY. MOM- TO GI BLEED AND SEPSIS, SISTER OF ENCEPHALOPATHY. SOCIAL HISTORY GENERAL: TOBACCO USE ARE YOU A:NONSMOKER ALCOHOL SCREENING DID YOU HAVE A DRINK CONTAINING ALCOHOL IN THE PAST YEAR?NO POINTS0 INTERPRETATIONNEGATIVE RECREATIONAL DRUG USE DRUG USE?NO CAFFEINE CAFFEINE USE?NO GNOSTICISM [id number] NONE NO SHINTO BELIEFS THAT WOULD IMPACT HEALTH CARE. LANGUAGE LANGUAGES SPOKEN:WELSH LEARNING BARRIERS / SPECIAL NEEDS VISION IMPAIRED?YES :CORRECTIVE LENSES READINESS TO LEARN?YES LEARNING CAPABILITIES PRESENT?YES PAIN CLINIC PFS, CLERGY, PUBLIC HEALTH REFERRALS PFS REFERRAL NEEDED?NO CLERGY REFERRAL NEEDED?NO PUBLIC HEALTH REFERRAL NEEDED?NO WAS THE PROVIDER NOTIFIED OF ANY PERTINENT INFO?YES HAS THE PATIENT BEEN EDUCATED REGARDING HIS/HER PLAN OF CARE?YES HAS THE PATIENT BEEN EDUCATED REGARDING PAIN, THE RISK FOR PAIN, THE IMPORTANCE OF EFFECTIVE PAIN MANAGEMENT, AND THE PAIN ASSESSMENT PROCESS?YES ADVANCE DIRECTIVE ADVANCE DIRECTIVE DISCUSSED WITH PATIENT:YES HCP - ZACK CARROLL () REVIEWED WITH PATIENT 04/15/18 5087 JS. HOSPITALIZATION/MAJOR DIAGNOSTIC PROCEDURE GI BLEED UNKNOWN CAUSE 2013 REVIEW OF SYSTEMS REVIEWED BY: PROVIDER: SILVESTRE REYES . CONSTITUTIONAL: ANY CHANGE IN YOUR MEDICAL CONDITION? NO . CHILLS NO . FEVER NO . INFECTION: DO YOU HAVE NEW INFECTIONS? NO . DO YOU HAVE HISTORY OF MRSA? NO . MUSCULOSKELETAL: ANY NEW PATTERNS OF PAIN OR NUMBNESS? NO . GASTROENTEROLOGY: ANY NEW CHANGE IN BOWEL CONTROL? NO . GENITOURINARY: ANY NEW CHANGE IN BLADDER CONTROL? NO . IS THERE A CHANCE YOU COULD BE ? NO . HEMATOLOGY/LYMPH: DO YOU TAKE ANY BLOOD THINNERS? (FOR EXAMPLE- COUMADIN, PLAVIX, AGGRENOX, PLATEL, PRADAXA, OR XARELTO) NO . WHEN WAS YOUR LAST DOSE? DATE: TIME: . NEUROLOGY: HAVE YOU FALLEN IN THE PAST 6 MONTHS? NO . ANY NEW EXTREMITY NUMBNESS OR WEAKNESS? NO . CARDIOLOGY: DO YOU HAVE A PACEMAKER OR DEFIBRILLATOR? NO . RESPIRATORY: HAVE YOU BEEN SICK IN THE PAST WEEK? NO . FEVER NO . FLU LIKE SYMPTOMS? NO . COUGH NO . INTEGUMENTARY: DO YOU HAVE ANY RASHES OR OPEN SORES? NO . ALLERGIC/IMMUNO: ARE YOU ALLERGIC TO SHELLFISH OR IV DYE? NO . ANY NEW ALLERGIES? NO . PSYCHIATRIC: DO YOU HAVE THOUGHTS OF HURTING YOURSELF OR SOMEONE ELSE? NO . ARE YOU ABUSED, NEGLECTED, OR IN AN UNSAFE ENVIRONMENT? NO . ENDOCRINOLOGY: ARE YOU DIABETIC? NO . OTHER: DO YOU NEED ANY PRESCRIPTIONS? NO . IF YES, PLEASE LIST: ____ . ANY NEW PROBLEMS WITH YOUR MEDICATIONS? NO . WHEN DID YOU LAST EAT? ____ . WHEN DID YOU LAST DRINK? ____ . WHAT DID YOU LAST DRINK? ____ . NAME OF PERSON DRIVING YOU HOME? ____ . DO YOU HAVE ANY OTHER QUESTIONS OR CONCERNS NO . VITAL SIGNS WT 273.8 LBS, HT 63 IN, BMI 48.50 INDEX, BP 138/85 MM HG, HR 86 /MIN, RR 18 /MIN, TEMP 97.0 F, OXYGEN SAT % 94%, SAFE IN ENV? (Y/N) YES, NA INITIALS WA 13:50, REVIEWED BY: AUREA. EXAMINATION GENERAL EXAMINATION: LUNGS:LUNG SOUNDS ARE CLEAR. HEART:HEART RATE REGULAR. MUSCULOSKELETAL:*, MUSCLE STRENGTH TESTING 5/5 BILATERAL LOWER EXTREMITIES., PALPATION: + FOR PAIN OVER L/S SPINE. + FOR PAIN OVER L/S PARSPINALS.SPECIFIC POINT TENDERNESS OVER LEFT L4/5-L5/S1 FACET REGION. ASSESSMENTS CHRONIC LOW BACK PAIN WITHOUT SCIATICA, UNSPECIFIED BACK PAIN LATERALITY - M54.5 (PRIMARY) TREATMENT CHRONIC LOW BACK PAIN WITHOUT SCIATICA, UNSPECIFIED BACK PAIN LATERALITY CONTINUE CYMBALTA CAPSULE DELAYED RELEASE PARTICLES, 30 MG, 1 CAPSULE, ORALLY, BID WITH FOOD FOR PAIN MDD2, NOTES: WORKERS COMPSENSATION PROCEDURES PN WORKMANS' COMP OPINION IN YOUR OPINION, WAS THE INCIDENT THAT THE PATIENT DESCRIBED THE COMPETENT MEDICAL CAUSE OF THIS INJURY/ILLNESS? YES ARE THE PATIENT'S COMPLAINTS CONSISTENT WITH HIS/HER HISTORY OF THE INJURY/ILLNESS? YES IS THE PATIENT'S HISTORY OF THE INJURY/ILLNESS CONSISTENT WITH YOUR OBJECTIVE FINDING? YES WHAT IS THE PERCENTAGE OF TEMPORARY IMPAIRMENT? MODERATE = 50% IS THE PATIENT WORKING? NO DOCTOR ON SITE: RIMA GUERRERO MD PROCEDURE CODES FA211 ESTABILISHED PATIENT [facility] CHARGE DISPOSITION & COMMUNICATION FOLLOW UP 3 MONTHS ELECTRONICALLY SIGNED BY AMY MEEK ON 04/15/2018 AT 02:19 PM EST DISCLAIMER : THIS IS A VISIT SUMMARY EXTRACTED FROM THE [employer] CHART. IT IS NOT A COPY OF THE [employer] PROGRESS NOTE. DEEJAY
== END ==
LOC: M PAIN 13:00
PROVIDERS: ATTEND Nurse Practitioner Family
DX: M54.5 Low back pain (principal); E78.00 Pure hypercholesterolemia, unspecified; E03.9 Hypothyroidism, unspecified; I10 Essential (primary) hypertension; Z90.710 Acquired absence of both cervix and uterus; Z79.1 Long term (current) use of non-steroidal anti-inflammatories (NSAID); Z79.899 Other long term (current) drug therapy; Z91.040 Latex allergy status; Z88.0 Allergy status to penicillin; Z88.2 Allergy status to sulfonamides; Z91.048 Other nonmedicinal substance allergy status; Z88.1 Allergy status to other antibiotic agents

== ENCOUNTER → 2018-12-29 | Outpatient (CLI) | payer OTHER ==
[~2018-12-29] MED LIST changes: -/DULO30CA PO; +CYMB1CAP5 PO
== END ==
LOC: M PAIN 13:45
PROVIDERS: ATTEND Nurse Practitioner Family
DX: M54.5 Low back pain (principal); E03.9 Hypothyroidism, unspecified; I10 Essential (primary) hypertension; Z96.651 Presence of right artificial knee joint; Z88.1 Allergy status to other antibiotic agents; Z88.2 Allergy status to sulfonamides; Z88.8 Allergy status to other drugs, medicaments and biological substances; Z91.040 Latex allergy status; Z91.09 Other allergy status, other than to drugs and biological substances; E66.01 Morbid (severe) obesity due to excess calories; Z68.42 Body mass index [BMI] 45.0-49.9, adult; Z79.51 Long term (current) use of inhaled steroids; Z79.899 Other long term (current) drug therapy

== ENCOUNTER → 2019-03-23 | Outpatient (CLI) | payer OTHER ==
--- NOTE | 2019-04-07 04:51 | ECWPNPC ---
PATIENT NAME: GLORIA CARROLL : 1950 GENDER: FEMALE VISIT DATE: 03/23/2019 DISCHARGE DATE: 03/23/19 1410 VISIT LOCKED DATE TIME: PHYSICIAN: SILVESTRE ALY RESOURCE: SILVESTRE ALY REASON FOR APPOINTMENT 1. MED MGMNT W/C HISTORY OF PRESENT ILLNESS HISTORY OF PRESENT ILLNESS: HERE FOR F/U AND MANAGEMENT OF PERSISTENT LBP.REPORTING PAIN 4/10. USING CYMBALTA 30MG BID FOR CHRONIC PAIN DAILY.THIS MEDICATION IS BEING PRESCRIBED FOR WORK RELATED INJURY IN 1985.PAIN IS LOCATED ACROSS LOW BACK AND DESCRIBED ACHING AND TENDER.PAIN IS AGGREVATED BY VACUUMING AND RELIEVED SOMEWHAT AT REST. PAIN THE PATIENT DESCRIBES THE PAIN... FALL RISK SCREENING: SCREENING :NO FALLS REPORTED IN THE LAST YEAR CURRENT MEDICATIONS TAKING FUROSEMIDE 40 MG TABLET 1 TABLET ORALLY TWICE A DAY TAKING SPIRONOLACTONE 25 MG TABLET 1 TABLET ORALLY DAILY TAKING SINGULAIR 10 MG TABLET 1 TABLET IN THE EVENING ORALLY ONCE A DAY TAKING STOOL SOFTENER 100 MG CAPSULE 1 CAPSULE NEEDED ORALLY TWICE A DAY TAKING ECOTRIN LOW STRENGTH 81 MG TABLET DELAYED RELEASE 1 TABLET ORALLY ONCE A DAY TAKING LEVOTHYROXINE SODIUM 25 MCG TABLET 1 TABLET ORALLY ONCE A DAY TAKING MELOXICAM 15 MG TABLET 1 CAPSULE ORALLY ONCE A DAY TAKING FLUOCINOLONE ACETONIDE BODY 0.01 % OIL 1 APPLICATION TO AFFECTED AREA AT BEDTIME EXTERNALLY ONCE A DAY TAKING KLOR-CON SPRINKLE 10 MEQ CAPSULE EXTENDED RELEASE 1 CAPSULE WITH FOOD ORALLY DAILY TAKING LORATADINE 10 MG TABLET 1 TABLET ORALLY ONCE A DAY TAKING OMEPRAZOLE 20 MG CAPSULE DELAYED RELEASE 1 CAPSULE ORALLY ONCE A DAY TAKING ATORVASTATIN CALCIUM 20 MG TABLET 1 TABLET ORALLY ONCE A DAY TAKING ZYRTEC ALLERGY 10 MG TABLET 1 TABLET ORALLY ONCE A DAY TAKING BREO ELLIPTA 200-25 MCG/INH AEROSOL POWDER BREATH ACTIVATED 1 PUFF INHALATION ONCE A DAY TAKING VENTOLIN HFA 90 MCG/ACT AEROSOL SOLUTION 2 PUFFS NEEDED INHALATION EVERY 4 HRS TAKING VITAMIN D3 COMPLETE - TABLET 5 ORALLY DAILY TAKING FLUTICASONE PROPIONATE (INHAL) 50 MCG/BLIST AEROSOL POWDER BREATH ACTIVATED 1 PUFF INHALATION TWICE A DAY TAKING VITAMIN B-12 1000 MCG TABLET CHEWABLE ORALLY TAKING LOSARTAN POTASSIUM 50 MG TABLET DIRECTED ORALLY TAKING BIOTIN 800 MCG TABLET 1 TABLET ORALLY ONCE A DAY TAKING L-GLUTAMINE 500 MG TABLET DIRECTED ORALLY TAKING MAGNESIUM 250 MG TABLET 1 TABLET WITH A MEAL ORALLY ONCE A DAY TAKING CYMBALTA 30 MG CAPSULE DELAYED RELEASE PARTICLES 1 CAPSULE ORALLY BID WITH FOOD FOR PAIN MDD2, NOTES: WORKERS COMPSENSATION TAKING ALBUTEROL SULFATE 1.25 MG/3ML NEBULIZATION SOLUTION 3 ML NEEDED INHALATION EVERY 8 HRS NOT-TAKING NASONEX 50 MCG/ACT SUSPENSION 2 SPRAYS IN EACH NOSTRIL NASALLY BID NOT-TAKING LISINOPRIL 5 MG TABLET 1 TABLET ORALLY ONCE A DAY NOT-TAKING ESTRADIOL 1 MG TABLET 1 TABLET ORALLY DAILY NOT-TAKING LANSOPRAZOLE 30 MG CAPSULE DELAYED RELEASE 1 CAPSULE ORALLY ONCE A DAY NOT-TAKING PROAIR HFA 108 (90 BASE) MCG/ACT AEROSOL SOLUTION 2 PUFFS INHALATION BID MEDICATION LIST REVIEWED AND RECONCILED WITH THE PATIENT PAST MEDICAL HISTORY HIGH CHOLESTORAL HYPOTHYROIDISM HYPERTENSION FLUID RETENTION BACK PAIN UTI ALLERGIES LATEX (FOR ALLERGY USE ONLY): RASH - ALLERGY CECLOR: HIVES - ALLERGY AMOXICILLIN: HIVES - ALLERGY SULFA (FOR ALLERGY USE ONLY): HIVES - ALLERGY BANDAGE TAPE: RASH - ALLERGY SURGICAL HISTORY TOTAL HYSTERECTOMY 2012 CHOLECYSTECTOMY 2010 RIGHT KNEE ARTHROSCOPY 1993 TORN LATERAL MENISCUS 2007 RIGHT BREAST LUMPECTOMY BENIGN 1992 COLON FISTULA REPAIR RIGHT KNEE REPLACEMENT 2017 FAMILY HISTORY FATHER: 83 YRS, DIAGNOSED WITH UNSPECIFIED HEART DISEASE MOTHER: 70 YRS 1 SISTER(S) . 1 SON(S) , 1 DAUGHTER(S) - HEALTHY. MOM- TO GI BLEED AND SEPSIS, SISTER OF ENCEPHALOPATHY. SOCIAL HISTORY GENERAL: TOBACCO USE ARE YOU A:NONSMOKER PAIN CLINIC PFS, CLERGY, PUBLIC HEALTH REFERRALS PFS REFERRAL NEEDED?NO CLERGY REFERRAL NEEDED?NO PUBLIC HEALTH REFERRAL NEEDED?NO WAS THE PROVIDER NOTIFIED OF ANY PERTINENT INFO?YES HAS THE PATIENT BEEN EDUCATED REGARDING HIS/HER PLAN OF CARE?YES HAS THE PATIENT BEEN EDUCATED REGARDING PAIN, THE RISK FOR PAIN, THE IMPORTANCE OF EFFECTIVE PAIN MANAGEMENT, AND THE PAIN ASSESSMENT PROCESS?YES LATEX QUESTIONNAIRE LATEX ALLERGY : HAVE YOU EVER DEVELOPED ANY TYPE OF REACTION AFTER HANDLING LATEX PRODUCTS SUCH RUBBER GLOVES, CONDOMS, DIAPHRAGMS, BALLOONS, SOCKS, OR UNDERWEAR?YES - PLEASE INDICATE :RUBBER GLOVES, UNDERWEAR EXPOSURE CAUSES RED RASH LATEX ALLERGY : HAVE YOU EVER DEVELOPED ANY TYPE OF REACTION DURING OR AFTER DENTAL APPOINTMENT, VAGINAL/RECTAL EXAMINATION, SURGICAL PROCEDURE, OR ANY OTHER EXPOSURE?NO LATEX RISK : HAVE YOU EVER HAD ANY DIFFICULTY BREATHING OR HIVES AFTER EATING OR HANDLING ANY FRUITS, OR VEGETABLES; SUCH KIWI, BANANAS, STONE FRUITS, OR CHESTNUTSNO LATEX RISK : DO YOU HAVE A PREVIOUS PERSONAL HISTORY OF MORE THAN NINE SURGERIES, SPINA BIFIDA, OR REPEATED CATHERIZATIONS? NO LATEX RISK : ARE YOU FREQUENTLY EXPOSED TO LATEX PRODUCTS IN YOUR OCCUPATION?NO DATE ASKED : 07/14/2018 CAFFEINE CAFFEINE USE?NO ADVANCE DIRECTIVE ADVANCE DIRECTIVE DISCUSSED WITH PATIENT:YES HCP - NAVI SCHAEFFER (DAUGHTER) [phone] PENTECOSTALISM [id number] NONE NO NONDENOMINATIONAL BELIEFS THAT WOULD IMPACT HEALTH CARE. LANGUAGE LANGUAGES SPOKEN:SERBIAN ALCOHOL SCREENING DID YOU HAVE A DRINK CONTAINING ALCOHOL IN THE PAST YEAR?NO POINTS0 INTERPRETATIONNEGATIVE RECREATIONAL DRUG USE DRUG USE?NO LEARNING BARRIERS / SPECIAL NEEDS VISION IMPAIRED?YES :CORRECTIVE LENSES READINESS TO LEARN?YES LEARNING CAPABILITIES PRESENT?YES REVIEWED WITH PATIENT 04/15/18 1357 JSREVIEWED WITH PATIENT 03/23/19 1342 JS. HOSPITALIZATION/MAJOR DIAGNOSTIC PROCEDURE GI BLEED UNKNOWN CAUSE 2013 REVIEW OF SYSTEMS REVIEWED BY: PROVIDER: SILVESTRE REYES . CONSTITUTIONAL: ANY CHANGE IN YOUR MEDICAL CONDITION? NO . CHILLS NO . FEVER NO . INFECTION: DO YOU HAVE NEW INFECTIONS? NO . DO YOU HAVE HISTORY OF MRSA? NO . MUSCULOSKELETAL: ANY NEW PATTERNS OF PAIN OR NUMBNESS? YES, STATES PAIN INCREASED RECENTLY TO 07/20. STATES W/C STOPPED PAYING FOR THE [employer] AND SHE WAS JUST ABLE TO GET IT AGAIN 03/12/19 . GASTROENTEROLOGY: ANY NEW CHANGE IN BOWEL CONTROL? NO . GENITOURINARY: ANY NEW CHANGE IN BLADDER CONTROL? NO . IS THERE A CHANCE YOU COULD BE ? NO . HEMATOLOGY/LYMPH: DO YOU TAKE ANY BLOOD THINNERS? (FOR EXAMPLE- COUMADIN, PLAVIX, AGGRENOX, PLATEL, PRADAXA, OR XARELTO) NO . WHEN WAS YOUR LAST DOSE? DATE: TIME: . NEUROLOGY: HAVE YOU FALLEN IN THE PAST 12 MONTHS? NO . ANY NEW EXTREMITY NUMBNESS OR WEAKNESS? NO . CARDIOLOGY: DO YOU HAVE A PACEMAKER OR DEFIBRILLATOR? NO . RESPIRATORY: HAVE YOU BEEN SICK IN THE PAST WEEK? YES, UTI - FINISHED COURSE OF ANTIBIOTICS LAST WEEK . FEVER NO . FLU LIKE SYMPTOMS? NO . COUGH NO . INTEGUMENTARY: DO YOU HAVE ANY RASHES OR OPEN SORES? NO . ALLERGIC/IMMUNO: ARE YOU ALLERGIC TO IV DYE? NO . ANY NEW ALLERGIES? NO . PSYCHIATRIC: DO YOU HAVE THOUGHTS OF HURTING YOURSELF OR SOMEONE ELSE? NO . ARE YOU ABUSED, NEGLECTED, OR IN AN UNSAFE ENVIRONMENT? NO . ENDOCRINOLOGY: ARE YOU DIABETIC? NO . OTHER: DO YOU NEED ANY PRESCRIPTIONS? NO . IF YES, PLEASE LIST: ____ . ANY NEW PROBLEMS WITH YOUR MEDICATIONS? NO . WHEN DID YOU LAST EAT? ____ . WHEN DID YOU LAST DRINK? ____ . WHAT DID YOU LAST DRINK? ____ . NAME OF PERSON DRIVING YOU HOME? ____ . DO YOU HAVE ANY OTHER QUESTIONS OR CONCERNS NO . VITAL SIGNS WT 274.0 LBS, HT 63 IN, BMI 48.53 INDEX, BP 137/76 MM HG, HR 91 /MIN, RR 18 /MIN, TEMP 96.9 F, OXYGEN SAT % 95%, SAFE IN ENV? (Y/N) YES, NA INITIALS AW 1337, REVIEWED BY: AUREA. EXAMINATION GENERAL EXAMINATION: LUNGS:LUNG SOUNDS ARE CLEAR. HEART:HEART RATE REGULAR. MUSCULOSKELETAL:*, MUSCLE STRENGTH TESTING 5/5 BILATERAL LOWER EXTREMITIES., PALPATION: + FOR PAIN OVER L/S SPINE. + FOR PAIN OVER L/S PARSPINALS.SPECIFIC POINT TENDERNESS OVER LEFT L4/5-L5/S1 FACET REGION. ASSESSMENTS CHRONIC LOW BACK PAIN WITHOUT SCIATICA, UNSPECIFIED BACK PAIN LATERALITY - M54.5 (PRIMARY) TREATMENT CHRONIC LOW BACK PAIN WITHOUT SCIATICA, UNSPECIFIED BACK PAIN LATERALITY CONTINUE CYMBALTA CAPSULE DELAYED RELEASE PARTICLES, 30 MG, 1 CAPSULE, ORALLY, BID WITH FOOD FOR PAIN MDD2, NOTES: WORKERS COMPSENSATION PROCEDURES PN WORKMANS' COMP OPINION IN YOUR OPINION, WAS THE INCIDENT THAT THE PATIENT DESCRIBED THE COMPETENT MEDICAL CAUSE OF THIS INJURY/ILLNESS? YES ARE THE PATIENT'S COMPLAINTS CONSISTENT WITH HIS/HER HISTORY OF THE INJURY/ILLNESS? YES IS THE PATIENT'S HISTORY OF THE INJURY/ILLNESS CONSISTENT WITH YOUR OBJECTIVE FINDING? YES WHAT IS THE PERCENTAGE OF TEMPORARY IMPAIRMENT? MODERATE TO MARKED = 66.7% IS THE PATIENT WORKING? NO DOCTOR ON SITE: RIMA GUERRERO MD PROCEDURE CODES FA211 ESTABILISHED PATIENT [facility] FACILITY CHARGE DISPOSITION & COMMUNICATION FOLLOW UP 3 MONTHS (REASON: W/C LBP) ELECTRONICALLY SIGNED BY AMY MEEK ON 04/06/2019 AT 01:46 PM EST DISCLAIMER : THIS IS A VISIT SUMMARY EXTRACTED FROM THE [employer] CHART. IT IS NOT A COPY OF THE [employer] PROGRESS NOTE. DEEJAY
== END ==
LOC: M PAIN 13:15
PROVIDERS: ATTEND Nurse Practitioner Family
DX: M54.5 Low back pain (principal); E03.9 Hypothyroidism, unspecified; I10 Essential (primary) hypertension; Z96.651 Presence of right artificial knee joint; Z88.1 Allergy status to other antibiotic agents; Z88.2 Allergy status to sulfonamides; Z91.040 Latex allergy status; Z91.09 Other allergy status, other than to drugs and biological substances; E66.01 Morbid (severe) obesity due to excess calories; Z68.42 Body mass index [BMI] 45.0-49.9, adult; Z79.51 Long term (current) use of inhaled steroids; Z79.899 Other long term (current) drug therapy

== ENCOUNTER → 2019-04-28 | Outpatient (REF) | payer MEDICARE | LOC: M SFHCPLAZ 08:27 | PROVIDERS: ATTEND Dermatology | DX: C44.311 Basal cell carcinoma of skin of nose (principal); D22.5 Melanocytic nevi of trunk | CPT/HCPCS: 11102; 11103; 88305; G0463 ==

== ENCOUNTER → 2019-05-31 | Outpatient (REF) | payer MEDICARE, MEDICAID | LOC: M LAB REF 09:25 | PROVIDERS: ATTEND Dermatology | DX: C44.311 Basal cell carcinoma of skin of nose (principal) ==

== ENCOUNTER → 2019-10-06 | Outpatient (CLI) | payer MEDICARE, MEDICAID ==
--- NOTE | 2019-10-11 00:25 | ECWPNPC ---
PATIENT NAME: GLORIA CARROLL : 1950 GENDER: FEMALE VISIT DATE: 10/06/2019 DISCHARGE DATE: 10/06/19 1113 VISIT LOCKED DATE TIME: PHYSICIAN: SILVESTRE ALY RESOURCE: SILVESTRE ALY REASON FOR APPOINTMENT 1. W/C LBP HISTORY OF PRESENT ILLNESS GENERAL: -. FALL RISK SCREENING: SCREENING :NO FALLS REPORTED IN THE LAST YEAR PAIN SCREENING: PATIENT HAS A COMPLAINT OF ACUTE OR CHRONIC PAIN :YES 10/06/19 INTENSITY OF PAIN (SCALE OF 1 TO 10):5 WHAT DOES YOUR PAIN FEEL LIKE:ACHING, BURNING, INTERMITTENT PAIN IS INCREASED BY: WALKING PAIN IS DECREASED BY: REST NURSING NOTE: -. PAIN CENTER INTAKE QUESTIONS: DO YOU HAVE A HISTORY OF MRSA? :NO DO YOU TAKE A BLOOD THINNERS? :NO DO YOU HAVE ANY BLEEDING DISORDERS? :NO ANY NEW NUMBNESS OR WEAKNESS IN YOUR LEGS OR ARMS? :NO ANY PACEMAKER,DEFIBRILLATOR, OR DORSAL COLUMN STIMULATOR? :NO DO YOU HAVE ANY RASHES OR OPEN SORES? :NO ARE YOU ALLERGIC TO IV DYE? :NO ARE YOU DIABETIC? :NO ANY NEW PROBLEMS WITH YOUR MEDICATIONS? :NO HAVE YOU RECEIVED A VACCINE IN THE PAST 30 DAYS? :NO DO YOU PLAN TO RECEIVE A VACCINE IN THE NEXT 21 DAYS? :NO DO YOU NEED ANY PRESCRIPTION? :YES CYMBALTA? DO YOU TAKE ANY IMMUNOSUPPRESSIVE MEDICATIONS? :NO IS THERE A CHANCE YOU COULD BE ? :NO ARE YOU BREAST FEEDING? :NO HISTORY OF PRESENT ILLNESS: PATIENT IS AGREEABLE TO TELEMED VISIT VIA ZOOM. THIS VISIT IS A F/U AND MANAGEMENT OF PERSISTENT LBP.REPORTING PAIN 5/10. USING CYMBALTA 30MG BID FOR CHRONIC PAIN DAILY.THIS MEDICATION IS BEING PRESCRIBED FOR WORK RELATED INJURY IN 1985.PAIN IS LOCATED ACROSS LOW BACK AND DESCRIBED ACHING AND TENDER. PATIENT HAS NOT HAD CYMBALTA OVER THE PAST 30 DAYS DUE TO APPROVAL PROCESS WITH WORKMEN'S COMPENSATION. STATES SHE'S BEEN HAVING AN INCREASE IN HER PAIN SINCE BEING WITHOUT THE MEDICATION. PAIN THE PATIENT DESCRIBES THE PAIN... CURRENT MEDICATIONS TAKING FUROSEMIDE 40 MG TABLET 1 TABLET ORALLY TWICE A DAY TAKING SPIRONOLACTONE 25 MG TABLET 1 TABLET ORALLY DAILY TAKING SINGULAIR 10 MG TABLET 1 TABLET IN THE EVENING ORALLY ONCE A DAY TAKING STOOL SOFTENER 100 MG CAPSULE 1 CAPSULE NEEDED ORALLY TWICE A DAY TAKING ECOTRIN LOW STRENGTH 81 MG TABLET DELAYED RELEASE 1 TABLET ORALLY ONCE A DAY TAKING LEVOTHYROXINE SODIUM 25 MCG TABLET 1 TABLET ORALLY ONCE A DAY TAKING MELOXICAM 15 MG TABLET 1 CAPSULE ORALLY ONCE A DAY TAKING FLUOCINOLONE ACETONIDE BODY 0.01 % OIL 1 APPLICATION TO AFFECTED AREA AT BEDTIME EXTERNALLY ONCE A DAY TAKING KLOR-CON SPRINKLE 10 MEQ CAPSULE EXTENDED RELEASE 1 CAPSULE WITH FOOD ORALLY DAILY TAKING LORATADINE 10 MG TABLET 1 TABLET ORALLY ONCE A DAY TAKING OMEPRAZOLE 20 MG CAPSULE DELAYED RELEASE 1 CAPSULE ORALLY ONCE A DAY TAKING ATORVASTATIN CALCIUM 20 MG TABLET 1 TABLET ORALLY ONCE A DAY TAKING ZYRTEC ALLERGY 10 MG TABLET 1 TABLET ORALLY ONCE A DAY TAKING BREO ELLIPTA 200-25 MCG/INH AEROSOL POWDER BREATH ACTIVATED 1 PUFF INHALATION ONCE A DAY TAKING VENTOLIN HFA 90 MCG/ACT AEROSOL SOLUTION 2 PUFFS NEEDED INHALATION EVERY 4 HRS TAKING VITAMIN D3 COMPLETE - TABLET 5 ORALLY DAILY TAKING FLUTICASONE PROPIONATE (INHAL) 50 MCG/BLIST AEROSOL POWDER BREATH ACTIVATED 1 PUFF INHALATION TWICE A DAY TAKING VITAMIN B-12 1000 MCG TABLET CHEWABLE ORALLY TAKING LOSARTAN POTASSIUM 50 MG TABLET DIRECTED ORALLY TAKING BIOTIN 800 MCG TABLET 1 TABLET ORALLY ONCE A DAY TAKING L-GLUTAMINE 500 MG TABLET DIRECTED ORALLY TAKING MAGNESIUM 250 MG TABLET 1 TABLET WITH A MEAL ORALLY ONCE A DAY TAKING ALBUTEROL SULFATE 1.25 MG/3ML NEBULIZATION SOLUTION 3 ML NEEDED INHALATION EVERY 8 HRS TAKING CYMBALTA 30 MG CAPSULE DELAYED RELEASE PARTICLES 1 CAPSULE ORALLY BID WITH FOOD FOR PAIN MDD2, NOTES: WORKERS COMPSENSATION NOT-TAKING DOXYCYCLINE HYCLATE 100 MG TABLET 1 TABLET ORALLY TWICE A DAY NOT-TAKING NASONEX 50 MCG/ACT SUSPENSION 2 SPRAYS IN EACH NOSTRIL NASALLY BID NOT-TAKING LISINOPRIL 5 MG TABLET 1 TABLET ORALLY ONCE A DAY NOT-TAKING ESTRADIOL 1 MG TABLET 1 TABLET ORALLY DAILY NOT-TAKING LANSOPRAZOLE 30 MG CAPSULE DELAYED RELEASE 1 CAPSULE ORALLY ONCE A DAY NOT-TAKING PROAIR HFA 108 (90 BASE) MCG/ACT AEROSOL SOLUTION 2 PUFFS INHALATION BID MEDICATION LIST REVIEWED AND RECONCILED WITH THE PATIENT PAST MEDICAL HISTORY HIGH CHOLESTORAL HYPOTHYROIDISM HYPERTENSION FLUID RETENTION BACK PAIN SKIN CANCER ON NOSE ALLERGIES LATEX (FOR ALLERGY USE ONLY): RASH - ALLERGY CECLOR: HIVES - ALLERGY AMOXICILLIN: HIVES - ALLERGY SULFA (FOR ALLERGY USE ONLY): HIVES - ALLERGY BANDAGE TAPE: RASH - ALLERGY SURGICAL HISTORY TOTAL HYSTERECTOMY 2013 CHOLECYSTECTOMY 2010 RIGHT KNEE ARTHROSCOPY 1994 TORN LATERAL MENISCUS 2008 RIGHT BREAST LUMPECTOMY BENIGN 1992 COLON FISTULA REPAIR 1979' RIGHT KNEE REPLACEMENT 2018 CANCER ON NOSE REMOVED 2019 FAMILY HISTORY FATHER: 83 YRS, DIAGNOSED WITH UNSPECIFIED HEART DISEASE MOTHER: 70 YRS 1 SISTER(S) . 1 SON(S) , 1 DAUGHTER(S) - HEALTHY. MOM- TO GI BLEED AND SEPSIS, SISTER OF ENCEPHALOPATHY, FATHER HAD SKIN CA. SOCIAL HISTORY GENERAL: TOBACCO USE ARE YOU A:NONSMOKER LATEX QUESTIONNAIRE LATEX ALLERGY : HAVE YOU EVER DEVELOPED ANY TYPE OF REACTION AFTER HANDLING LATEX PRODUCTS SUCH RUBBER GLOVES, CONDOMS, DIAPHRAGMS, BALLOONS, SOCKS, OR UNDERWEAR?YES LATEX ALLERGY : HAVE YOU EVER DEVELOPED ANY TYPE OF REACTION DURING OR AFTER DENTAL APPOINTMENT, VAGINAL/RECTAL EXAMINATION, SURGICAL PROCEDURE, OR ANY OTHER EXPOSURE?NO - PLEASE INDICATE :RUBBER GLOVES, UNDERWEAR EXPOSURE CAUSES RED RASH DATE ASKED : 04/28/2019 LATEX RISK : HAVE YOU EVER HAD ANY DIFFICULTY BREATHING OR HIVES AFTER EATING OR HANDLING ANY FRUITS, OR VEGETABLES; SUCH KIWI, BANANAS, STONE FRUITS, OR CHESTNUTSNO LATEX RISK : DO YOU HAVE A PREVIOUS PERSONAL HISTORY OF MORE THAN NINE SURGERIES, SPINA BIFIDA, OR REPEATED CATHERIZATIONS? NO LATEX RISK : ARE YOU FREQUENTLY EXPOSED TO LATEX PRODUCTS IN YOUR OCCUPATION?NO ALCOHOL SCREENING DID YOU HAVE A DRINK CONTAINING ALCOHOL IN THE PAST YEAR?NO POINTS0 INTERPRETATIONNEGATIVE RECREATIONAL DRUG USE DRUG USE?NO CAFFEINE CAFFEINE USE?NO SHINTO [id number] NONE NO YAZIDISM BELIEFS THAT WOULD IMPACT HEALTH CARE. LANGUAGE LANGUAGES SPOKEN:SWEDISH LEARNING BARRIERS / SPECIAL NEEDS CHANGE FROM LAST VISIT? 04/28/2019 BARRIERS TO LEARNING?NO HEARING IMPAIRED?NO VISION IMPAIRED?YES COGNITIVELY IMPAIRED?NO :CORRECTIVE LENSES READINESS TO LEARN?YES LEARNING PREFERENCES?NO LEARNING CAPABILITIES PRESENT?YES EMOTIONAL BARRIERS?NO SPECIAL DEVICES?NO CATERING SERVICE MANAGER NEEDED?NO PAIN CLINIC PFS, CLERGY, PUBLIC HEALTH REFERRALS PFS REFERRAL NEEDED?NO CLERGY REFERRAL NEEDED?NO PUBLIC HEALTH REFERRAL NEEDED?NO WAS THE PROVIDER NOTIFIED OF ANY PERTINENT INFO?YES HAS THE PATIENT BEEN EDUCATED REGARDING HIS/HER PLAN OF CARE?YES HAS THE PATIENT BEEN EDUCATED REGARDING PAIN, THE RISK FOR PAIN, THE IMPORTANCE OF EFFECTIVE PAIN MANAGEMENT, AND THE PAIN ASSESSMENT PROCESS?YES ADVANCE DIRECTIVE ADVANCE DIRECTIVE DISCUSSED WITH PATIENT:YES HCP - NAVI SCHAEFFER (DAUGHTER) [phone] REVIEWED WITH PATIENT 04/15/18 1357 JSREVIEWED WITH PATIENT 03/23/19 1342 JS. HOSPITALIZATION/MAJOR DIAGNOSTIC PROCEDURE GI BLEED UNKNOWN CAUSE 2013 REVIEW OF SYSTEMS CONSTITUTIONAL: ANY RECENT FEVER NO . CHILLS NO . WEIGHT CHANGE OF UNKNOWN REASONS NO . GASTROENTEROLOGY: NEW UNEXPLAINABLE CHANGES IN BOWEL CONTROL NO . CONSTIPATION NO . GENITOURINARY: ANY NEW CHANGE IN BLADDER CONTROL? NO . NEUROLOGY: NEW ONSET DIZZINESS OR NEUROLOGICAL CHANGES NOT MENTIONED NO . NEW NUMBNESS OR PAIN PATTERNS NOT MENTIONED AND PERTINENT TO TODAY'S VISIT NO . CARDIOLOGY: NEW CHEST PRESSURE NO . NEW CHEST PAIN NO . RESPIRATORY: UNEXPLAINABLE COUGH NO . NEW SHORTNESS OF BREATH NO . ASSESSMENTS CHRONIC LOW BACK PAIN WITHOUT SCIATICA, UNSPECIFIED BACK PAIN LATERALITY - M54.5 (PRIMARY) TREATMENT CHRONIC LOW BACK PAIN WITHOUT SCIATICA, UNSPECIFIED BACK PAIN LATERALITY NOTES: CONTINUE HOME EXERCISE AND STRETCHING. CONTINUE CYMBALTA 30 MG TWICE DAILY. FOLLOW-UP IS SCHEDULED FOR 3 MONTHS. ENCOURAGED TO CALL SOONER IF CONDITION CHANGES. TOTAL TIME SPENT DURING TELEMED VISIT WAS APPROXIMATELY 12 MINUTES. OTHERS CLINICAL NOTES: PRE SCREENING CALL DONE 10/06/19 EM. PROCEDURES PN WORKMANS' COMP OPINION IN YOUR OPINION, WAS THE INCIDENT THAT THE PATIENT DESCRIBED THE COMPETENT MEDICAL CAUSE OF THIS INJURY/ILLNESS? YES ARE THE PATIENT'S COMPLAINTS CONSISTENT WITH HIS/HER HISTORY OF THE INJURY/ILLNESS? YES IS THE PATIENT'S HISTORY OF THE INJURY/ILLNESS CONSISTENT WITH YOUR OBJECTIVE FINDING? YES WHAT IS THE PERCENTAGE OF TEMPORARY IMPAIRMENT? MODERATE TO MARKED = 66.7% IS THE PATIENT WORKING? NO DOCTOR ON SITE: RIMA GUERRERO MD DISPOSITION & COMMUNICATION FOLLOW UP 3 MONTHS (REASON: WORKMEN'S COMP LOW BACK PAIN) ELECTRONICALLY SIGNED BY AMY MEEK ON 10/10/2019 AT 08:56 AM EDT DISCLAIMER : THIS IS A VISIT SUMMARY EXTRACTED FROM THE [employer] CHART. IT IS NOT A COPY OF THE [employer] PROGRESS NOTE. MTDD
== END ==
LOC: M TMPAIN 11:00 → M PAIN 11:00
PROVIDERS: ATTEND Nurse Practitioner Family
DX: M54.5 Low back pain (principal); Z79.899 Other long term (current) drug therapy; Z88.0 Allergy status to penicillin; Z88.1 Allergy status to other antibiotic agents; Z88.2 Allergy status to sulfonamides; Z91.040 Latex allergy status; Z91.048 Other nonmedicinal substance allergy status

== ENCOUNTER → 2021-11-03 | Outpatient (CLI) | payer MEDICARE, MEDICAID ==
[~2021-11-03] MED LIST changes: +ALEN70TA82 PO; +ALLO300T2 PO; +ATOR1TAB21 PO; +BIOT10009 PO; +BLOOKIT XX; +CALCTAB89 PO; +CYCL-707; +D3 +TAB PO; +DIPH25CA32 PO; +EPIN0.3I11 IM; +FLON1SPR NARES; +FLUTISP; +GNP250TA9 PO; +LEVO50TA5 PO; +LIDOCAINE 1% MDV 20ML VIAL As Ordered ONE; +LOSA50TA28 PO; +PANT40TA29; +POTA2TAB2 PO; +QC A650T3 PO; +RIZA10TA2 PO; +SUPECAP7 PO; +TRAM50TA2 PO; +[UNRECOGNIZED DRUG - CODE] PO
[2021-11-03 12:54] LABS: HEMATOCRIT 41.3 % (36.0-47.0); HEMOGLOBIN 12.5 g/dl (12.0-15.5); MEAN CORPUSCULAR HEMOGLOBIN 29.6 pg (27.0-33.0); MEAN CORPUSCULAR HGB CONC 30.3 g/dl (32.0-36.5); MEAN CORPUSCULAR VOLUME 97.9 fl (80.0-96.0); PLATELET COUNT, AUTOMATED 340 10^3/uL (150-450); RED BLOOD COUNT 4.22 10^6/uL (4.00-5.40)
[2021-11-03 13:05] LABS: WHITE BLOOD COUNT 70.1 10^3/uL (4.0-10.0)
[2021-11-03 13:28] VITALS: BP 135/68
[2021-11-03 13:34] LABS: ATYPICAL LYMPH 1 % (0-5); BASOPHILS 5 % (0-1); EOSINOPHILS 4 % (0-3); LYMPHOCYTES 5 % (16-44); METAMYELOCYTES 6 % (0-0); MONOCYTES 1 % (0-5); MYELOCYTES 17 % (0-0); NEUTROPHILS 44 % (28-66); PROMYELOCYTES 4 % (0-0)
[2021-11-03 13:37] LABS: MICROCYTOSIS 1+; POLYCHROMASIA 1+
[2021-11-03 13:39] LABS: PLATELET ESTIMATE NORMAL (NORMAL)
[2021-11-03 13:40] LABS: STOMATOCYTES 1+
== END ==
LOC: M IRPRO 12:13
PROVIDERS: ATTEND Specialist
DX: C92.10 Chronic myeloid leukemia, BCR/ABL-positive, not having achieved remission (principal)

== ENCOUNTER → 2021-12-04 | Outpatient (CLI) | payer MEDICARE, MEDICAID ==
[~2021-12-04] MED LIST changes: -LIDOCAINE 1% MDV 20ML VIAL As Ordered ONE; +PROC10TA5 PO; +PROC5TAB57 PO; +TASI150C PO
== END ==
LOC: M EKG 10:38
PROVIDERS: ATTEND Specialist
DX: C92.10 Chronic myeloid leukemia, BCR/ABL-positive, not having achieved remission (principal)

== ENCOUNTER → 2022-02-17 | Outpatient (CLI) | payer MEDICARE, MEDICAID ==
[~2022-02-17] MED LIST changes: +ONDA-83 PO
== END ==
LOC: M EKG 14:03
PROVIDERS: ATTEND Specialist
DX: C92.10 Chronic myeloid leukemia, BCR/ABL-positive, not having achieved remission (principal)

== ENCOUNTER → 2022-05-27 | Outpatient (CLI) | payer MEDICARE, MEDICAID ==
[~2022-05-27] MED LIST changes: +DIPH-435 PO; -DIPH25CA32 PO
== END ==
LOC: M EKG 14:40
PROVIDERS: ATTEND Specialist
DX: C92.10 Chronic myeloid leukemia, BCR/ABL-positive, not having achieved remission (principal)

== ENCOUNTER → 2022-11-12 | Outpatient (CLI) | payer MEDICARE, MEDICAID ==
[~2022-11-12] MED LIST changes: +ACET650T15 PO; +DEXA4TA PO; +DULO1CAP5; +FLUT50SP17; -FLUTISP; +NOXI1TAB PO; +ONDA-84 PO; +OPTI0.5D5 OP; +PROA1AER2 INH; +SPIR-10; +SYST1SOL4 OP; +XIID5DRO OU
== END ==
LOC: M CARPUL 13:17
PROVIDERS: ATTEND Specialist
DX: C50.919 Malignant neoplasm of unspecified site of unspecified female breast (principal); I08.0 Rheumatic disorders of both mitral and aortic valves